=== PATIENT | female | born 1980 | race Caucasian/White ===

== ENCOUNTER 2020-05-14 16:50 | Outpatient (REF) | payer OTHER, SELFPAY | END 2020-05-14 16:51 | disposition home or self-care (01) | LOC: HO.LNP 16:50 | PROVIDERS: Visit Provider Hospitalist | DX: Z20.828 Contact with and (suspected) exposure to other viral communicable diseases (principal) | CPT/HCPCS: 87635 ==

== ENCOUNTER 2021-01-04 12:39 | Outpatient (REF) | payer OTHER, SELFPAY ==
[2021-01-04 14:00] LABS: MANUAL DIFF FLAG NO
[2021-01-04 14:07] LABS: Basophils Percent Auto 0.5 % (0-2); Eosinophils Absolute Auto 0.1 X10*3/uL (0.0-0.4); Eosinophils Percent Auto 1.3 % (0-4); Hematocrit 39.7 % (37-47); Hemoglobin 13.5 g/dl (12.0-16.0); Imm Gran Abs Auto 0.02 X10*3/uL (0.00-0.03); Imm Gran Pct Auto 0.3 % (0.0-0.4); Lymphocytes Absolute Auto 1.9 X10*3/uL (1.2-4.9); Lymphocytes Percent Auto 31.7 % (20-40); Mean Corpuscular Volume 91.3 fL (80-98); Mean Platelet Volume 10.1 fL (9.4-12.3); Monocytes Absolute Auto 0.6 X10*3/uL (0.1-1.2); Monocytes Percent Auto 10.1 % (2-11); Neutrophils Absolute Auto 3.4 X10*3/uL (2.0-8.3); Neutrophils Percent Auto 56.1 % (45-73); Platelet Count 321 X10*3/uL (160-400); Red Blood Count 4.35 X10*6/uL (4.20-5.50); Red Cell Distribution Width 11.1 % (11.0-16.0)
[2021-01-04 14:29] LABS: Alanine Aminotransferase 20 U/L (0-31); Albumin Level 4.7 g/dL (3.5-5.0); Alkaline Phosphatase 32 U/L (39-117); Anion Gap 12 (12-20); Aspartate Amino Transferase 18 U/L (5-31); Bilirubin Total 0.7 mg/dL (0.0-1.0); Blood Urea Nitrogen 13 mg/dL (9-16); Carbon Dioxide 25 mmol/L (22-29); Chloride 106 mmol/L (96-108); Cholesterol 227 mg/dL; Estimated Glomerular Filt Rate > 60; Glucose Fasting 90 mg/dL (60-99); HDL Cholesterol 60 mg/dL; LDL Cholesterol Calculated 149 mg/dl; Potassium 4.3 mmol/L (3.3-5.1); Sodium 139 mmol/L (135-145); Total Protein 7.3 g/dL (6.5-8.0); Triglycerides 92 mg/dL
[2021-01-04 14:52] LABS: TSH reflex Free T4 0.77 uIU/mL (0.32-4.0)
== END 2021-01-04 12:40 | disposition home or self-care (01) ==
LOC: HO.HMGCLDS 12:39
PROVIDERS: PCP Internal Medicine; Visit Provider Internal Medicine
DX: E66.9 Obesity, unspecified (principal); F41.1 Generalized anxiety disorder; G47.9 Sleep disorder, unspecified
CPT/HCPCS: 36415; 80053; 80061; 84443; 85025

== ENCOUNTER 2021-11-05 15:17 | Outpatient (REF) | payer OTHER, SELFPAY ==
[2021-11-05 16:50] LABS: MANUAL DIFF FLAG NO
[2021-11-05 16:54] LABS: Basophils Percent Auto 0.3 % (0-2); Eosinophils Percent Auto 0.4 % (0-4); Hematocrit 37.1 % (37.0-47.0); Hemoglobin 12.6 g/dl (12.0-16.0); Imm Gran Abs Auto 0.02 X10*3/uL (0.00-0.03); Imm Gran Pct Auto 0.2 % (0.0-0.4); Lymphocytes Absolute Auto 2.1 X10*3/uL (1.2-4.9); Lymphocytes Percent Auto 23.5 % (20-40); Mean Corpuscular Hemoglobin 31.1 pg (27.0-33.0); Mean Corpuscular Volume 91.6 fL (80.0-98.0); Mean Platelet Volume 10.9 fL (9.4-12.3); Monocytes Absolute Auto 0.5 X10*3/uL (0.1-1.2); Monocytes Percent Auto 6.1 % (2-11); Neutrophils Absolute Auto 6.2 x10*3/uL (2.0-8.3); Neutrophils Percent Auto 69.5 % (45-73); Platelet Count 300 X10*3/uL (160-400); Red Blood Count 4.05 X10*6/uL (4.20-5.50); Red Cell Distribution Width 11.3 % (11.0-16.0); White Blood Count 8.9 X10*3/uL (4.8-10.8)
[2021-11-05 17:14] LABS: Alanine Aminotransferase 12 U/L (0-31); Albumin Level 4.5 g/dL (3.5-5.0); Alkaline Phosphatase 35 U/L (39-117); Anion Gap 13 (12-20); Aspartate Amino Transferase 17 U/L (5-31); Bilirubin Total 0.4 mg/dL (0.0-1.0); Blood Urea Nitrogen 15 mg/dL (9-16); Calcium 10.1 mg/dL (8.4-10.2); Carbon Dioxide 23 mmol/L (22-29); Chloride 104 mmol/L (96-108); Cholesterol 180 mg/dL; Estimated Glomerular Filt Rate > 60; Glucose Fasting 87 mg/dL (60-99); HDL Cholesterol 46 mg/dL; LDL Cholesterol Calculated 117 mg/dl; Potassium 3.9 mmol/L (3.3-5.1); Sodium 136 mmol/L (135-145); Triglycerides 85 mg/dL
[2021-11-05 17:35] LABS: TSH reflex Free T4 1.68 uIU/mL (0.32-4.0)
== END 2021-11-05 15:18 | disposition home or self-care (01) ==
LOC: HO.HMGCLDS 15:17
PROVIDERS: PCP Internal Medicine; Visit Provider Internal Medicine
DX: Z00.01 Encounter for general adult medical examination with abnormal findings (principal); E66.09 Other obesity due to excess calories; F41.1 Generalized anxiety disorder; G47.9 Sleep disorder, unspecified; Z72.0 Tobacco use
CPT/HCPCS: 36415; 80053; 80061; 84443; 85025

== ENCOUNTER 2022-05-06 14:04 | Outpatient (REF) | payer OTHER, SELFPAY | END 2022-05-06 14:05 | disposition home or self-care (01) | LOC: HO.LNP 14:04 | PROVIDERS: Visit Provider Advanced Practice Midwife | DX: Z13.89 Encounter for screening for other disorder (principal) ==

== ENCOUNTER 2022-05-06 14:24 | Outpatient (REF) | payer OTHER, SELFPAY ==
[2022-05-07 04:49] LABS: HBc Num1 0.14 S/CO (0.00-0.79); HIV AB/AG Nonreactive (Nonreactive); HIV Num 1 0.05 S/CO (0.00-0.99); Hepatitis B Core Antibody Nonreactive (Nonreactive); ~HepC Num1 0.13 S/CO (0.00-0.79); ~Hepatitis C Antibody Nonreactive (Nonreactive)
[2022-05-07 05:27] LABS: Syphilis Screen Nonreactive (Nonreactive)
[2022-05-07 05:37] LABS: CT PCR NOT DETECTED (Not Detect.); NG PCR NOT DETECTED (Not Detect.)
[2022-05-07 09:21] LABS: BV Int Neg Control Negative (Negative); BV Int Pos Control Positive (Positive)
[2022-05-09 21:43] LABS: HPV mRNA E6/E7 rflx Not Detected (Not Detected)
== END 2022-05-06 14:25 | disposition home or self-care (01) ==
LOC: HO.LAB 14:24
PROVIDERS: PCP Internal Medicine; Visit Provider Advanced Practice Midwife
DX: Z12.4 Encounter for screening for malignant neoplasm of cervix (principal); Z11.51 Encounter for screening for human papillomavirus (HPV); Z11.4 Encounter for screening for human immunodeficiency virus [HIV]; Z20.2 Contact with and (suspected) exposure to infections with a predominantly sexual mode of transmission; N89.8 Other specified noninflammatory disorders of vagina
CPT/HCPCS: 86704; 86780; 86803; 87389; 87480; 87491; 87510; 87591; 87624; 87660; 88142

== ENCOUNTER 2022-12-20 10:16 | Outpatient (REF) | payer OTHER, SELFPAY ==
--- NOTE | ~2022-12-20 | MM_ITS ---
EXAMINATION: MM SCREENING DIGITAL BREAST TOMOSYNTHESIS, BILATERAL CLINICAL INFORMATION: Screening. Asymptomatic.. Age 42. No prior mammography. The lifetime risk of breast cancer based on the Tyrer-Cuzick Model is 9%. COMPARISON: Targeted left breast ultrasound 02/15/2010. TECHNIQUE: Digital breast tomosynthesis is performed in both the craniocaudal and mediolateral oblique views along with computer-aided detection (CAD). Synthesized 2D images are generated from the tomosynthesis. FINDINGS: The breasts are heterogeneously dense, which may obscure small masses (ACR BI-RADS breast composition Category c). There are no significant masses, abnormal calcifications, or other abnormalities. No architectural abnormality. The axilla and skin contours are unremarkable. MM/MM tomosynthesis screening BI IMPRESSION: No mammographic evidence of malignancy. ASSESSMENT: BI-RADS 1: Negative RECOMMENDATION: Routine annual mammography screening. This patient's information was entered into a reminder system with a target due date for their next mammogram.
== END 2022-12-20 10:17 | disposition home or self-care (01) ==
LOC: HO.MAMMO 10:16
PROVIDERS: PCP Internal Medicine; Visit Provider Advanced Practice Midwife
DX: Z12.31 Encounter for screening mammogram for malignant neoplasm of breast (principal)
CPT/HCPCS: 77063; 77067

== ENCOUNTER 2023-05-12 14:20 | Outpatient (AMB) | payer OTHER, SELFPAY ==
--- NOTE | 2023-05-12 14:25 | A.OFFVIS_ITS ---
Intake Vital Signs 05/12/23 14:28 Height 5 ft 7 in Weight 196 lb BMI 30.7 BP 110/74 Intake Visit Reasons: Annual Intake Note: ? BV. 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 Doing well with no concerns. She tries to eat healthy, limited exercise with working from home. Has recently stopped her gym membership due to time constraints. Regular monthly menses that last approximately x 5d, HMB 2-3d, often painful, for her whole life. She now has PMS symptoms; cramping, tension, irritable and anxious. Not on her anxiety meds anymore. She stopped the Nexplanon due to bloating, weight gain, and acne. Then tried the pills and felt similar symptoms. She did well with the Mirena. She denies vaginal itching and irritation, treated recently for yeast and BV, feels dry. Not currently sexually active. STI screening offered; she accepts. Denies family history of breast, ovarian or colon cancer. Last pap smear 04/2022, was negative. [facility] Medical History H/O abnormal cervical Papanicolaou smear Obesity Difficulty sleeping Anxiety, generalized Family History Father Unknown family medical history Mother Mood disorder Maternal Grandmother Heart disease Diabetes mellitus Maternal Grandfather Heart disease Lung cancer Sister No problems noted. Son No problems noted. Social History Housing: Apartment Alcohol intake: current Alcohol intake frequency: a few times a month Patient Tobacco Use Status: Former Tobacco user Quit Date: quit 4 years ago e-Cigarette/Vaping Use: Currently Using service: No Current occupational status: employed Sexual orientation: Straight/Heterosexual Gender identity: Female Cognitive needs: No Hearing needs: No Vision needs: No Female Reproductive History Menstrual Date of last menstrual period: 05/05/23 control method: none Total pregnancies: 2 Full term: 1 Number of Living Children: 1 Ab induced: 1 Date of last pap smear: 05/08/22 Date of Mammogram: 12/20/22 Review of Systems Const All systems reviewed & are unremarkable except as noted in HPI and below Reports as per HPI Eyes Reports no additional complaints ENT Reports no additional complaints Card Reports no additional complaints Resp Reports no additional complaints GI Reports as per HPI and Reports no additional complaints Reports as per HPI Musc Reports no additional complaints Skin/Breast Reports as per HPI Neuro Reports no additional complaints Psych Reports no additional complaints Endo Reports no additional complaints Randolph/Lymph Reports no additional complaints Aller/Immun Reports no additional complaints Physical Exam Vital Signs: Last Vital Signs BP 110/74 05/12/23 14:28 BMI result Body Mass Index 30.7 Const General: cooperative, healthy appearing, no acute distress, well developed and alert Orientation/consciousness: patient oriented x3 HEENT Head: Yes normal to inspection Eyes General: appearance normal, both eyes and all related structures Neck Neck: Yes normal visual inspection Thyroid: Thyroid normal Chest Chest palpation & inspection: normal inspection of the chest and other (no puckering, dimpling, peau de orange, retraction, discharge, masses) Breast/axilla inspection: normal inspection of the breasts Breast/axilla palpation: normal palpation of the breasts Resp Effort & Inspection: normal respiratory effort GI Inspection: Yes normal to inspection Palpation (GI): Soft to palpation Rectal Exam - Female: deferred General: Yes bladder normal to palpation External Female Exam: normal external appearance and normal appearance of the urethra Speculum Exam - Vagina: normal appearance of the vagina, normal palpation and normal vaginal discharge Speculum Exam - Cervix: normal appearance of the cervix, normal palpation and Cervical mass present (small appearing polyp) Bimanual exam- vagina & uterus: normal bimanual exam, normal palpation, uterine size normal, bladder normal to palpation, normal palpation and non-tender Bimanual Exam- Adnexa, other: no masses Skin General skin exam: no rashes or lesions noted Rashes: no rashes Neuro General: patient oriented x3 Cognition (Neuro): normal cognition Extrem General: Yes normal to inspection Psych Attitude: cooperative Thought process: Normal thought process present Assessment & Plan Assessment & Plan (1) Well woman exam (no gynecological exam): Code(s): Z00.00 - Encounter for general adult medical examination without abnormal findings Plan: Discussed: Current recommendations for pap smears per ASCCP guidelines. Breast awareness and periodic breast exams. Maintain a healthy lifestyle including a well balanced diet and routine exercise. Use condoms for STI and prevention. Sign up for the patient portal if not already enrolled. Discussed: work up for HMB and polypectomy. All of her questions and concerns were addressed to the best of my ability and shared decision making. She is agreeable to the plan of care. 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 (2) Heavy menstrual bleeding: Code(s): N92.0 - Excessive and frequent menstruation with regular cycle (3) Cervical polyp: Code(s): N84.1 - Polyp of cervix uteri Orders: Orders Bacterial Vaginosis Panel 05/12/23 N92.0 - Excessive and frequent menstruation with regular cycle, Z01.419 - Encounter for gynecological examination (general) (routine) without abnormal findings US pelvic and transvaginal 05/12/23 N84.1 - Polyp of cervix uteri, N92.0 - Excessive and frequent menstruation with regular cycle Thyroid Stimulating Hormone 05/12/23 N92.0 - Excessive and frequent menstruation with regular cycle, N92.1 - Excessive and frequent menstruation with irregular cycle Hepatitis C Antibody 05/12/23 Z20.2 - Contact with and (suspected) exposure to infections with a predominantly sexual mode of transmission Hepatitis B Core Antibody 05/12/23 Z20.2 - Contact with and (suspected) exposure to infections with a predominantly sexual mode of transmission HIV Ab/Ag 05/12/23 Z20.2 - Contact with and (suspected) exposure to infections with a predominantly sexual mode of transmission MM tomosynthesis screening BI 05/12/23 Z12.31 - Encounter for screening mammogram for malignant neoplasm of breast CT NG by PCR 05/12/23 N92.0 - Excessive and frequent menstruation with regular cycle, Z01.419 - Encounter for gynecological examination (general) (routine) without abnormal findings Complete Blood Count no Diff 05/12/23 N92.0 - Excessive and frequent menstruation with regular cycle Syphilis Screen 05/12/23 Z20.2 - Contact with and (suspected) exposure to infections with a predominantly sexual mode of transmission Coding Level of Care Code Est Pt Prev Care 40-64y(69937) Diagnoses Well woman exam (no gynecological exam) Z00.00 Heavy menstrual bleeding N92.0 Cervical polyp N84.1
[2023-05-12 14:28] VITALS: BP 110/74; BMI 30.7
== END 2023-05-12 15:19 | disposition home or self-care (01) ==
PROVIDERS: PCP Internal Medicine; Visit Provider Advanced Practice Midwife
DX: Z01.411 Encounter for gynecological examination (general) (routine) with abnormal findings (principal); N84.1 Polyp of cervix uteri; N92.0 Excessive and frequent menstruation with regular cycle
CPT/HCPCS: 99396

== ENCOUNTER 2023-05-12 14:20 | Outpatient (REF) | payer OTHER, SELFPAY ==
[2023-05-13 11:31] LABS: CT PCR NOT DETECTED (Not Detect.); NG PCR NOT DETECTED (Not Detect.)
[2023-05-13 13:41] LABS: BV Int Neg Control Negative (Negative); BV Int Pos Control Positive (Positive)
== END 2023-05-12 14:21 | disposition home or self-care (01) ==
LOC: HO.LNP 14:20
PROVIDERS: Visit Provider Advanced Practice Midwife
DX: Z01.419 Encounter for gynecological examination (general) (routine) without abnormal findings (principal); N92.0 Excessive and frequent menstruation with regular cycle; N84.1 Polyp of cervix uteri; Z20.2 Contact with and (suspected) exposure to infections with a predominantly sexual mode of transmission
CPT/HCPCS: 0353U; 87480; 87510; 87660

== ENCOUNTER 2023-05-12 15:21 | Outpatient (REF) | payer OTHER, SELFPAY ==
[2023-05-12 15:58] LABS: Hematocrit 38.1 % (37.0-47.0); Mean Corpuscular HGB Conc 34.1 g/dl (31.0-35.0); Mean Corpuscular Volume 90.9 fL (80.0-98.0); Platelet Count 301 X10*3/uL (160-400); Red Blood Count 4.19 X10*6/uL (4.20-5.50); Red Cell Distribution Width 11.5 % (11.0-16.0); White Blood Count 5.8 X10*3/uL (4.8-10.8)
[2023-05-12 16:43] LABS: Thyroid Stimulating Hormone 1.51 uIU/mL (0.32-4.0)
[2023-05-13 08:25] LABS: HBc Num1 0.17 S/CO (0.00-0.79); HIV AB/AG Nonreactive (Nonreactive); HIV Num 1 0.04 S/CO (0.00-0.99); Hepatitis B Core Antibody Nonreactive (Nonreactive); ~HepC Num1 0.04 S/CO (0.00-0.79); ~Hepatitis C Antibody Nonreactive (Nonreactive)
[2023-05-13 08:28] LABS: Syphilis Screen Nonreactive (Nonreactive)
== END 2023-05-12 15:22 | disposition home or self-care (01) ==
LOC: HO.LAB 15:21
PROVIDERS: Visit Provider Advanced Practice Midwife
DX: Z20.2 Contact with and (suspected) exposure to infections with a predominantly sexual mode of transmission (principal); N92.0 Excessive and frequent menstruation with regular cycle; N92.1 Excessive and frequent menstruation with irregular cycle
CPT/HCPCS: 36415; 84443; 85027; 86704; 86780; 86803; 87389

== ENCOUNTER 2023-05-27 12:59 | Outpatient (REF) | payer OTHER, SELFPAY ==
--- NOTE | ~2023-05-27 | US_ITS ---
EXAMINATION: US PELVIS CLINICAL INFORMATION: Menorrhagia. LMP 05/13/2023. COMPARISON: None available. TECHNIQUE: Ultrasound of the pelvis is performed using both transabdominal and transvaginal transducers along with Doppler. Transvaginal imaging is performed due to inadequate visualization transabdominally. FINDINGS: Uterus: The uterus is anteverted. The uterus measures 7.9 x 4.6 x 5.6 cm. Uterine echotexture is heterogeneous. Few myometrial cysts are present. The endometrial stripe measures 1.0 cm in thickness. Adnexa: The right ovary measures 4.2 x 2.5 x 3.2 cm for a volume of 17.9 mL. The left ovary measures 2.4 x 1.5 x 2.1 cm for a volume of 4.0 mL. There is a predominantly solid lesion in the left adnexa between the left ovary and the uterine. Approximate measurements are 1.6 x 1.6 x 1.9 cm. No internal color Doppler flow. Small pelvic ascites. US/US pelvic and transvaginal IMPRESSION: Predominantly solid left adnexal mass measuring 1.6 x 1.6 x 1.9 cm of uncertain significance. This could represent a fibroid. Consider correlation with quantitative beta-hCG levels.
[2023-05-27 16:26] LABS: UPreg QC Valid YES; Urine Pregnancy NEGATIVE (NEGATIVE)
== END 2023-05-27 13:00 | disposition home or self-care (01) ==
LOC: HO.HMGCX 12:59
PROVIDERS: PCP Internal Medicine; Visit Provider Advanced Practice Midwife
DX: N92.0 Excessive and frequent menstruation with regular cycle (principal); N84.1 Polyp of cervix uteri; N91.2 Amenorrhea, unspecified
CPT/HCPCS: 76830; 76856; 81025

== ENCOUNTER 2023-06-16 10:31 | Outpatient (AMB) | payer OTHER, SELFPAY ==
[2023-06-16 10:36] VITALS: BP 126/68; BMI 32.1
--- NOTE | 2023-06-16 10:36 | A.OFFPC_ITS ---
Vital Signs 06/16/23 10:36 Height 5 ft 7 in Weight 205 lb BMI 32.1 BP 126/68 Blood Pressure Location Rt brachial Position Sitting Intake Visit Reasons: phy Allergies Cats/Dogs Allergy (Unknown, Uncoded 05/12/23 14:30) per allergy testing Environmental Allergy (Unknown, Uncoded 05/12/23 14:30) per allergy testing Medication List - Last Reconciled 06/16/23 by Flo Hernandez MD No Known Home Meds Tobacco use date assessed: 06/16/23 Dental Screening Dental Screen Date: 06/16/23 Did you have a dental visit in the last 12 months?: Yes Did you have a dental problem in the last 6 months where you did not have access to dental care?: No Was dental information given to patient?: Patient has dentist HPI phy HPI Details Patient is a 42-year-old female came in today for physical examination She stopped taking clonazepam and zolpidem Patient is taking neik-off-khcgwix sleep remedies which is helping but she still wake up improved times at night Patient admits that she have severe anxiety which is causing problems with socialization. She agreed to take Lexapro, I have sent in mg tablet patient is to take half a tablet for a week and then full tablet. We will be holding onto clonazepam and zolpidem prescription for now This patient does not need to come in every 3 by before refills. She missed her last appointment in March and ran out of medication so she stopped. Mammogram is up-to-date She has [facility]. BMI is elevated at 32.1 patient is trying to lose weight. If she continued with Lexapro she will be returning for follow-up in 6 months Patient will stay in touch with me through patient portal [facility] Medical History Obesity H/O abnormal cervical Papanicolaou smear Difficulty sleeping Anxiety, generalized Family History Father Unknown family medical history Mother Mood disorder Maternal Grandmother Heart disease Diabetes mellitus Maternal Grandfather Heart disease Lung cancer Sister No problems noted. Son No problems noted. Social History Housing: Apartment Alcohol intake: current Alcohol intake frequency: a few times a month Patient Tobacco Use Status: Former Tobacco user Quit Date: quit 4 years ago e-Cigarette/Vaping Use: Currently Using service: No Current occupational status: employed Sexual orientation: Straight/Heterosexual Gender identity: Female Cognitive needs: No Hearing needs: No Vision needs: No Questionnaire PHQ-9 Over the last 2 weeks, how often have you been bothered by any of the following problems? 1. Little interest or pleasure in doing things: more than half the days 2. Feeling down, depressed, or hopeless: several days 3. Trouble falling or staying asleep, or sleeping too much: nearly every day 4. Feeling tired or having little energy: nearly every day 5. Poor appetite or overeating: more than half the days 6. Feeling bad about yourself - or that you are a failure or have let yourself or your family down: more than half the days 7. Trouble concentrating on things, such as reading the newspaper or watching television: more than half the days 8. Moving or speaking so slowly that other people could have noticed. Or the opposite - being so fidgety or restless that you have been moving around a lot more than usual: more than half the days 9. Thoughts that you would be better off or of hurting yourself in some way: not at all Total score: 17 Depression Screening Interpretation: Positive Depression Screening Follow-up: Existing condition, In treatment and New Medication prescribed Depression Screening Done: Yes 33832 - PHQ-9 Billing: Yes Source: Developed by Drs. Oswaldo Bal, Cathy Mendez, Emeterio Navarrete and colleagues, with an educational cas from [employer]. Thrive Questionnaire Date Thrive assessed: 01/04/21 IBRAHIMA-7 AMB Questionnaire IBRAHIMA-7 Date IBRAHIMA - 7 assessed: 06/16/23 Feeling nervous, anxious, or on edge: 2 = More than half the days Not being able to stop or control worryin = More than half the days Worrying too much about different things: 2 = More than half the days Trouble relaxin = More than half the days Being so restless that it is hard to sit still: 2 = More than half the days Becoming easily annoyed or irritable: 2 = More than half the days Feeling afraid as if something awful might happen: 2 = More than half the days Total IBRAHIMA-7 score (0-4 normal; 5-9 mild; 10-14 moderate; 15-21 severe): 14 Source: Developed by Drs. Oswaldo Bal, Cathy Mendez, Emeterio Navarrete and colleagues, with an educational cas from [employer]. IBRAHIMA-7 Assessment Billing IBRAHIMA-7 Assessment Tool: IBRAHIMA-7 Assessment 00399 Review of Systems Const Denies chills, Denies fever(s) and Denies headache(s) Eyes Denies blurry vision ENT Denies headache(s), Denies nasal discharge, Denies nasal obstruction, Denies odynophagia and Denies sinus pain Card Denies chest pain at rest and Denies chest pain with activity Resp Denies cough and Denies hemoptysis GI Denies diarrhea, Denies odynophagia, Denies vomiting and Denies hematemesis Reports as per HPI Musc Denies abnormal gait Skin/Breast Reports as per HPI Neuro Denies Neuro-related abnormal movements, Denies Abnormal speech present, Denies abnormal gait, Denies headache(s) and Denies Sensory deficit (Neuro) Psych Denies mood swings and Denies paranoia Endo Reports as per HPI Randolph/Lymph Reports as per HPI Aller/Immun Reports as per HPI Physical exam (Primary Care) Vital Signs: Last Vital Signs BP 126/68 06/16/23 10:36 BMI result Body Mass Index 32.1 Tobacco/Smoking Status: Tobacco use Status Tobacco use date assessed 06/16/23 06/16/23 10:43 Patient Tobacco Use Status Former Tobacco user 06/16/23 10:43 e-Cigarette/Vaping Use Currently Using 06/16/23 10:43 PHQ-9: PHQ-9 Score PHQ-9: Total score 17 06/16/23 11:07 Depression Screening Interpretation: Positive Depression Screening Follow-up: Existing condition, In treatment and New Medication prescribed Thrive Assessment: Date of Thrive Assessment Date Thrive assessed 01/04/21 06/16/23 10:43 Const General: cooperative, comfortable and no acute distress Orientation/consciousness: patient oriented x3 HENMT Head: Yes normocephalic and Yes atraumatic Eyes General: appearance normal, both eyes and all related structures Pupils: Equal, round and reactive pupils present EOM: EOMs intact bilaterally Neck Neck: Yes supple and No lymphadenopathy Thyroid: Thyroid normal Lymphatic: no lymphadenopathy noted Resp Effort & Inspection: normal respiratory effort and able to speak in complete sentences Auscultation: clear to auscultation bilaterally Cardio Heart sounds: S1 normal heart sound present and S2 normal heart sound present GI Palpation (GI): Soft to palpation and nontender Auscultation: normal bowel sounds General: Yes no CVA tenderness Back/Spine/Pelvis Back: no CVA tenderness Skin General skin exam: elasticity normal and turgor normal Neuro General: patient oriented x3 and gait normal Cranial nerves: Yes Equal, round and reactive pupils present Speech: No Abnormal speech present Sensory Exam: No Sensory deficit (Neuro) Coordination: tandem gait normal and Romberg test negative Extrem General: Yes normal exam except as noted and No edema Assessment and Plan Assessment & Plan (1) Encounter for general adult medical examination with abnormal findings: Code(s): Z00.01 - Encounter for general adult medical examination with abnormal findings (2) Anxiety, generalized: Code(s): F41.1 - Generalized anxiety disorder (3) Tobacco abuse: Code(s): Z72.0 - Tobacco use (4) Obesity: Code(s): E66.9 - Obesity, unspecified Qualifiers: Body mass index: BMI 32.0-32.9 Obesity classification: adult class 1 (BMI 30 - 34.9) Obesity type: due to excess calories Serious obesity comorbidity presence: without serious comorbidity Qualified Code(s): E66.09 - Other obesity due to excess calories; Z68.32 - Body mass index [BMI] 32.0-32.9, adult (5) Difficulty sleeping: Code(s): G47.9 - Sleep disorder, unspecified Plan Patient is a 42-year-old female came in today for physical examination She stopped taking clonazepam and zolpidem Patient is taking [id number]-[id number]-[id number] sleep remedies which is helping but she still wake up improved times at night Patient admits that she have severe anxiety which is causing problems with socialization. She agreed to take Lexapro, I have sent in mg tablet patient is to take half a tablet for a week and then full tablet. We will be holding onto clonazepam and zolpidem prescription for now This patient does not need to come in every 3 by before refills. She missed her last appointment in March and ran out of medication so she stopped. Mammogram is up-to-date She has [facility]. BMI is elevated at 32.1 patient is trying to lose weight. If she continued with Lexapro she will be returning for follow-up in 6 months Patient will stay in touch with me through patient portal Orders: Orders Comprehensive [place]. Panel Fast Today F41.1 - Generalized anxiety disorder, Z00.01 - Encounter for general adult medical examination with abnormal findings Lipid Panel Today F41.1 - Generalized anxiety disorder, Z00.01 - Encounter for general adult medical examination with abnormal findings Medications: New escitalopram oxalate (Lexapro) 10 mg PO DAILY 30 tabs 0RF Coding Level of Care Code Est Pt Prev Care 40-64y(78756) Diagnoses Encounter for general adult medical examination with abnormal findings Z00.01 Anxiety, generalized F41.1 Tobacco abuse Z72.0 Class 1 obesity due to excess calories without serious comorbidity with body mass index (BMI) of 32.0 to 32.9 in adult E66.09; Z68.32 Body mass index: BMI 32.0-32.9 Obesity classification: adult class 1 (BMI 30 - 34.9) Obesity type: due to excess calories Serious obesity comorbidity presence: without serious comorbidity Difficulty sleeping G47.9 Additional Codes IBRAHIMA-7 Assessment Billing - IBRAHIMA-7 Assessment Tool: IBRAHIMA-7 Assessment [id number] ([id number])
== END 2023-06-16 11:06 | disposition home or self-care (01) ==
PROVIDERS: PCP Internal Medicine; Visit Provider Internal Medicine
DX: Z00.00 Encounter for general adult medical examination without abnormal findings (principal); F41.1 Generalized anxiety disorder; E66.09 Other obesity due to excess calories; Z68.32 Body mass index [BMI] 32.0-32.9, adult; Z72.0 Tobacco use; G47.9 Sleep disorder, unspecified
CPT/HCPCS: 96127; 99396

== ENCOUNTER 2023-06-24 13:10 | Outpatient (REF) | payer OTHER, SELFPAY | END 2023-06-24 13:11 | disposition home or self-care (01) | LOC: HO.LAB 13:10 | PROVIDERS: PCP Internal Medicine; Visit Provider Advanced Practice Midwife | DX: N84.1 Polyp of cervix uteri (principal) | CPT/HCPCS: 57500; 81025; 88305 ==

== ENCOUNTER 2023-06-24 13:10 | Outpatient (AMB) | payer OTHER, SELFPAY ==
--- NOTE | 2023-06-24 13:14 | A.OFFVIS_ITS ---
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 She reports two closely spaced menses last month. [facility] Medical History Obesity H/O abnormal cervical Papanicolaou smear Difficulty sleeping Anxiety, generalized Family History Father Unknown family medical history Mother Mood disorder Maternal Grandmother Heart disease Diabetes mellitus Maternal Grandfather Heart disease Lung cancer Sister No problems noted. Son No problems noted. Social History Housing: Apartment Alcohol intake: current Alcohol intake frequency: a few times a month Patient Tobacco Use Status: Former Tobacco user Quit Date: quit 4 years ago e-Cigarette/Vaping Use: Currently Using service: No Current occupational status: employed Sexual orientation: Straight/Heterosexual Gender identity: Female Cognitive needs: No Hearing needs: No Vision needs: No Female Reproductive History Menstrual Date of last menstrual period: 06/03/23 Physical Exam Vital Signs: Last Vital Signs BP 140/80 H 06/24/23 13:15 BMI result Body Mass Index 32.1 Results AMB Test Urine AMB Test Urine Negative Last Edit by PHILIPPE Bowens on 06/24/23 13:27 Results Reviewed Results Reviewed: Laboratory Last Values [facility] Negative 06/24/23 13:26 Assessment & Plan Assessment & Plan (1) Polyp, cervix, mucous: Code(s): N84.1 - Polyp of cervix uteri Plan Polypectomy Post Procedure Care: Nothing in the vagina including: tampons, douching or intimacy until all the bleeding has subsided. There may be some post procedure bleeding for several days, this bleeding is usually light and may turn to a light brown or pink color. Mild cramps may occurs. Nothing in the vaginal including: tampons, douching, or intimacy until all the bleeding has subsided. You may take an over the counter mild analgesic such as Tylenol or Advil (if no allergies) per the manufactures recommendation on dosing, frequency, and follow the directions completely. Call the office if any: fever (over 100.4), flu like symptoms, abdominal pain (worse than cramping), foul smelling, infected appearing vaginal discharge, or heavy bleeding. You will be scheduled for a follow up visit for results, either in person or on the phone when the results are completed in a few weeks. If indicated: Use condoms to prevent and STI's, and only after the bleeding has stopped completely. Orders: Orders Surgical 06/24/23 N84.1 - Polyp of cervix uteri AMB HCG Urine Test 06/24/23 Z32.02 - Encounter for test, result negative Coding Level of Care Code Procedure Only Diagnoses Polyp, cervix, mucous N84.1
[2023-06-24 13:15] VITALS: BP 140/80; BMI 32.1
== END 2023-06-24 13:59 | disposition home or self-care (01) ==
PROVIDERS: PCP Internal Medicine; Visit Provider Advanced Practice Midwife
DX: N84.1 Polyp of cervix uteri (principal)
CPT/HCPCS: 57500

== ENCOUNTER 2023-06-26 08:14 | Outpatient (REF) | payer OTHER, SELFPAY ==
--- NOTE | ~2023-06-26 | MR_ITS ---
EXAMINATION: MR PELVIS WITHOUT AND WITH CONTRAST CLINICAL INFORMATION: Intra-abdominal and pelvic swelling, mass or lump. Question uterine fibroid. COMPARISON: Previous pelvic ultrasound May 27, 2023. TECHNIQUE: Sagittal, axial and coronal sequences through the pelvis with and without IV contrast. Patient received 10 mL IV Gadavist contrast. FINDINGS: The uterus is anteverted and measures 8 x 4.5 x 5.8 cm in sagittal, AP and transverse dimension. There is a 1.7 cm left posterior fundal uterine lesion. This is intermediate signal on T1-weighted sequences, low signal on T2 weighted sequences and demonstrates homogeneous mild enhancement. Appearance is suggestive of a subserosal fibroid. There is a second subserosal low signal T2 nonenhancing lesion along the anterior upper uterine body suggestive of a small fibroid. There are several small cysts in the uterus next to the endometrium measuring 5 mm. No other focal uterine lesion seen. Endometrial thickness is normal measuring 6 mm. The junctional zone does not appear thickened. The cervix is normal. The ovaries are normal. The bladder is empty. There is a small heterogeneous in signal slightly irregularly-shaped lesion seen in the anterior pelvis superior to the bladder. This measures 2.3 x 3.3 x 3.6 cm in dimension. This is heterogeneous in signal with laminated high and low signal layers on T1 and T2-weighted sequences. This does not demonstrate increased T1 signal to suggest of acute hemorrhage or endometrioma. This does not demonstrate enhancement. This may present an organized old hematoma or fibrosis. No ascites. No adenopathy. No hernia. Vascular structures are normal. There may be loss of bright T2 signal suggestive of degenerative disc disease in the lower lumbar spine. Bony structures are otherwise unremarkable. MR/MR pelvis wo/w con IMPRESSION: Small uterine fibroids. No adnexal mass. 2.3 x 3.3 x 3.6 cm irregularly-shaped lesion in the anterior pelvis superior to the bladder. Differential would include old organized hematoma or fibrosis.
[2023-06-26] MEDS: gadobutroL 10 ML VIAL IVPUSH (09:24)
== END 2023-06-26 08:15 | disposition home or self-care (01) ==
LOC: HO.MRI 08:14
PROVIDERS: PCP Internal Medicine; Visit Provider Advanced Practice Midwife
DX: R19.00 Intra-abdominal and pelvic swelling, mass and lump, unspecified site (principal)
CPT/HCPCS: 72197; A9585

== ENCOUNTER 2023-07-17 09:37 | Outpatient (REF) | payer OTHER, SELFPAY ==
[2023-07-17 11:48] LABS: HCG Quantitative < 2 mIU/mL
[2023-07-17 12:15] LABS: Alanine Aminotransferase 18 U/L (0-31); Albumin Level 4.5 g/dL (3.5-5.0); Alkaline Phosphatase 33 U/L (39-117); Anion Gap 12 (12-20); Aspartate Amino Transferase 20 U/L (5-31); Bilirubin Total 0.5 mg/dL (0.0-1.0); Blood Urea Nitrogen 12 mg/dL (9-16); Calcium 9.8 mg/dL (8.4-10.2); Carbon Dioxide 25 mmol/L (22-29); Chloride 106 mmol/L (96-108); Cholesterol 216 mg/dL (<200); Estimated Glomerular Filt Rate > 60; Glucose Fasting 93 mg/dL (60-99); HDL Cholesterol 61 mg/dL (>40); LDL Cholesterol Calculated 135 mg/dL (<100); Potassium 3.9 mmol/L (3.3-5.1); Sodium 139 mmol/L (135-145); Total Protein 7.3 g/dL (6.5-8.0); Triglycerides 100 mg/dL (<150)
== END 2023-07-17 09:38 | disposition home or self-care (01) ==
LOC: HO.LAB 09:37
PROVIDERS: Advanced Practice Midwife; PCP Internal Medicine; Visit Provider Internal Medicine
DX: Z32.02 Encounter for pregnancy test, result negative (principal); F41.1 Generalized anxiety disorder; R93.89 Abnormal findings on diagnostic imaging of other specified body structures; N92.1 Excessive and frequent menstruation with irregular cycle; R19.00 Intra-abdominal and pelvic swelling, mass and lump, unspecified site
CPT/HCPCS: 36415; 58100; 80053; 80061; 81025; 84702

== ENCOUNTER 2023-07-17 09:37 | Outpatient (AMB) | payer OTHER, SELFPAY ==
--- NOTE | 2023-07-17 09:45 | MHC.OFFVIS ---
Intake Vital Signs 07/17/23 09:48 Height 5 ft 7 in Weight 202 lb 13.204 oz BMI 31.8 BP 122/78 Intake Visit Reasons: MRI follow up Rehab Nursing Tech Required: No Information Interpreted: non-clinical & clinical Accompanied by: Self / Same As Patient Allergies Cats/Dogs Allergy (Unknown, Uncoded 07/17/23 09:49) per allergy testing Environmental Allergy (Unknown, Uncoded 07/17/23 09:49) per allergy testing HPI HPI Comments History of Present Illness Details Is here for follow-up MRI, history heavy menstrual bleeding, prior pelvic lesion on US. She had a recent polypectomy and reports her period was shorter in duration (2.5d) but still heavy. Reports heavy menses her whole life, always on BC until the last 6 months, now passing large blood clots. Closely spaced cycles 2-3 weeks apart. [facility] Medical History Obesity H/O abnormal cervical Papanicolaou smear Difficulty sleeping Anxiety, generalized Family History Father Unknown family medical history Mother Mood disorder Maternal Grandmother Heart disease Diabetes mellitus Maternal Grandfather Heart disease Lung cancer Sister No problems noted. Son No problems noted. Social History Housing: Apartment Alcohol intake: current Alcohol intake frequency: a few times a month Patient Tobacco Use Status: Former Tobacco user Quit Date: quit 4 years ago e-Cigarette/Vaping Use: Currently Using service: No Current occupational status: employed Sexual orientation: Straight/Heterosexual Gender identity: Female Cognitive needs: No Hearing needs: No Vision needs: No Review of Systems Const All systems reviewed & are unremarkable except as noted in HPI and below Physical Exam Vital Signs: Last Vital Signs BP 122/78 07/17/23 09:48 BMI result Body Mass Index 31.8 Const General: cooperative, healthy appearing and no acute distress Orientation/consciousness: patient oriented x3 GI Inspection: Yes normal to inspection Palpation (GI): Soft to palpation and Other GI palpation findings present (Nontender) Rectal Exam - Female: visual inspection normal General: Yes bladder normal to palpation External Female Exam: normal appearance of the urethra Speculum Exam - Vagina: normal appearance of the vagina, normal palpation and normal vaginal discharge Speculum Exam - Cervix: normal appearance of the cervix and normal palpation Bimanual exam- vagina & uterus: normal bimanual exam, normal palpation, uterine size normal, bladder normal to palpation, normal palpation, uterine shape normal and non-tender Bimanual Exam- Adnexa, other: normal adnexae Neuro General: patient oriented x3 Office Procedures Endometrial Biopsy Details: The patient is here today for an endometrial biopsy due to AUB to rule out any pathology including atypical, hyperplasia or cancer cells of the uterus. She was counseled regarding anticipatory guidance for the procedure including the risks for pain, infection, bleeding, perforation, potential injury to the tissues may include the cervix, uterus, tubes, bladder and bowels. These injuries may include further treatment and evaluation including surgery, blood transfusions, antibiotics, hospitalizations and anesthesia. Permanent injury and scarring can occur. She was consented for the procedure, and the consent forms were signed. She is agreeable to have the procedure today. All questions were answered. Endometrial Biopsy Procedure: The patient was placed in the dorsal lithotomy position and a sterile speculum inserted. Using aseptic technique for the procedure. The cervix was cleansed with Betadine x 3 swabs. A single toothed tenaculum was placed on the cervix for stabilization and the uterus was sounded to 7 cm with a 4mm pipelle for 3 passes. Minimal bleeding was observed. The tissue sample was placed in formalin in a patient labeled container by staff assisting and sent to the pathology department for processing and interpretation. The patient tolerate the procedure well and was in good condition when leaving the department. Endometrial Biopsy Post Procedure Care: Nothing in the vagina including: tampons, douching or intimacy until all the bleeding has subsided. There may be some post procedure bleeding for several days, this bleeding is usually light and may turn to a light brown or pink color. Mild cramps may occurs. Nothing in the vaginal including: tampons, douching, or intimacy until all the bleeding has subsided. You may take an over the counter mild analgesic such as Tylenol or Advil (if no allergies) per the manufactures recommendation on dosing, frequency, and follow the directions completely. Call the office if any: fever (over 100.4), flu like symptoms, abdominal pain (worse than cramping), foul smelling, infected appearing vaginal discharge, or heavy bleeding. If indicated: Use condoms to prevent and STI's, and only after the bleeding has stopped completely. Return to the office in 2 weeks for results and plan of care. This note is constructed using voice recognition software. While every effort has been made to ensure accuracy, varnishing unit operator errors may have been included. [id number] Biopsy Results AMB Test Urine AMB Test Urine Negative Last Edit by Laura James CMA on 07/17/23 10:33 Results Reviewed Results Reviewed: Laboratory Last Values Tst Clinic Negative 07/17/23 10:[address] [address] Magnetic Resonance Report Signed Patient: Radha Peralta MR#: [id number] : 1980 Acct:[id number] Age/Sex: 42 / F ADM Date: 06/26/23 Loc: HO.MRI Attending Dr: April Chacon CNM Ordering Physician: April Chacon CNM Date of Service: 06/26/23 Procedure(s): MR pelvis wo/w con Accession Number(s): [id number] cc: Flo Hernandez MD; April Chacon CNM~ EXAMINATION: MR PELVIS WITHOUT AND WITH CONTRAST CLINICAL INFORMATION: Intra-abdominal and pelvic swelling, mass or lump. Question uterine fibroid. COMPARISON: Previous pelvic ultrasound May 27, 2023. TECHNIQUE: Sagittal, axial and coronal sequences through the pelvis with and without IV contrast. Patient received 10 mL IV Gadavist contrast. FINDINGS: The uterus is anteverted and measures 8 x 4.5 x 5.8 cm in sagittal, AP and transverse dimension. There is a 1.7 cm left posterior fundal uterine lesion. This is intermediate signal on T1-weighted sequences, low signal on T2 weighted sequences and demonstrates homogeneous mild enhancement. Appearance is suggestive of a subserosal fibroid. There is a second subserosal low signal T2 nonenhancing lesion along the anterior upper uterine body suggestive of a small fibroid. There are several small cysts in the uterus next to the endometrium measuring 5 mm. No other focal uterine lesion seen. Endometrial thickness is normal measuring 6 mm. The junctional zone does not appear thickened. The cervix is normal. The ovaries are normal. The bladder is empty. There is a small heterogeneous in signal slightly irregularly-shaped lesion seen in the anterior pelvis superior to the bladder. This measures 2.3 x 3.3 x 3.6 cm in dimension. This is heterogeneous in signal with laminated high and low signal layers on T1 and T2-weighted sequences. This does not demonstrate increased T1 signal to suggest of acute hemorrhage or endometrioma. This does not demonstrate enhancement. This may present an organized old hematoma or fibrosis. No ascites. No adenopathy. No hernia. Vascular structures are normal. There may be loss of bright T2 signal suggestive of degenerative disc disease in the lower lumbar spine. Bony structures are otherwise unremarkable. MR/MR pelvis wo/w con IMPRESSION: Small uterine fibroids. No adnexal mass. 2.3 x 3.3 x 3.6 cm irregularly-shaped lesion in the anterior pelvis superior to the bladder. Differential would include old organized hematoma or fibrosis. Dictated By: Cindy Gay MD Signed By: <Electronically signed by Cindy Gay MD in OV> 06/26/23 1031 DD/ 0907 TD/TT: Accounting Support Specialist: RENETTA Assessment & Plan Assessment & Plan (1) Heavy menstrual bleeding: Code(s): N92.0 - Excessive and frequent menstruation with regular cycle Qualifiers: Menorrhagia type: with irregular cycle Qualified Code(s): N92.1 - Excessive and frequent menstruation with irregular cycle (2) Pelvic mass: Code(s): R19.00 - Intra-abdominal and pelvic swelling, mass and lump, unspecified site Plan Discussed: ultrasound findings, irregular shaped lesion in anterior superior to the bladder measuring up to 3.6 cm. Differential is considered hematoma or fibrosis. A subserosal fibroid, and 2nd subserosal lesion anterior upper uterine body suggested of a small fiber. Prior left adnexal mass not seen. Consider referral for surgical consultation-Await EMB results and discuss plan of care in 1-2 weeks. All of her questions and concerns were addressed to the best of my ability and shared decision making. She is agreeable to the plan of care. See procedure note for additional information. This note is constructed using voice recognition software. While every effort has been made to ensure accuracy, varnishing unit operator errors may have been included. Orders: Orders AMB HCG Urine Test Today Z32.02 - Encounter for test, result negative Surgical Today N93.9 - Abnormal uterine and vaginal bleeding, unspecified Coding Level of Care Code Procedure Only Diagnoses Menorrhagia with irregular cycle N92.1 Menorrhagia type: with irregular cycle Pelvic mass R19.00 CPT Codes Endometrial Biopsy - CPT: 78815-Otkozuqjzqu Biopsy ([id number])
[2023-07-17 09:48] VITALS: BP 122/78; BMI 31.8
== END 2023-07-17 10:52 | disposition home or self-care (01) ==
LOC: HO.HWS 09:37
PROVIDERS: PCP Internal Medicine; Visit Provider Advanced Practice Midwife
DX: Z30.430 Encounter for insertion of intrauterine contraceptive device (principal); Z32.02 Encounter for pregnancy test, result negative
CPT/HCPCS: 58100

== ENCOUNTER 2023-07-17 10:58 | Outpatient (REF) | payer OTHER, SELFPAY | END 2023-07-17 10:59 | disposition home or self-care (01) | LOC: HO.LNP 10:58 | PROVIDERS: Visit Provider Advanced Practice Midwife | DX: N93.9 Abnormal uterine and vaginal bleeding, unspecified (principal) | CPT/HCPCS: 88305 ==

== ENCOUNTER 2023-07-31 10:31 | Outpatient (AMB) | payer OTHER, SELFPAY ==
--- NOTE | 2023-07-31 10:32 | A.OFFVIS_ITS ---
Intake Vital Signs 07/31/23 10:35 Height 5 ft 7 in Weight 202 lb 13.204 oz BMI 31.8 BP 110/70 Intake Visit Reasons: EMB results Allergies Cats/Dogs Allergy (Unknown, Uncoded 07/17/23 09:49) per allergy testing Environmental Allergy (Unknown, Uncoded 07/17/23 09:49) per allergy testing HPI HPI Comments History of Present Illness Details Patient is here today for results from her EMB due to have a menstrual bleeding. Also concerns for her recent MRI and follow-up plan of care. She is interested in starting control in the future. She reports a history of prior pelvic pain more intense on her left side since episode has resolved. [facility] Medical History Obesity H/O abnormal cervical Papanicolaou smear Difficulty sleeping Anxiety, generalized Family History Father Unknown family medical history Mother Mood disorder Maternal Grandmother Heart disease Diabetes mellitus Maternal Grandfather Heart disease Lung cancer Sister No problems noted. Son No problems noted. Social History Housing: Apartment Alcohol intake: current Alcohol intake frequency: a few times a month Patient Tobacco Use Status: Former Tobacco user Quit Date: quit 4 years ago e-Cigarette/Vaping Use: Currently Using service: No Current occupational status: employed Sexual orientation: Straight/Heterosexual Gender identity: Female Cognitive needs: No Hearing needs: No Vision needs: No Physical Exam Vital Signs: Last Vital Signs BP 110/70 07/31/23 10:35 BMI result Body Mass Index 31.8 Results Reviewed Results Reviewed: of 1 [email or web address]#page=1&zoom=auto,- 15,809 Surgical Pathology [id number] Name: Radha Peralta Age/Sex: 42/F Attending: April Chacon CNM : 1980 Submitted by: April Chacon CNM Copies to: MR #: [id number] Status: DEP REF Collected: 07/17/23 Location: [facility] Received: 07/17/23 Diagnosis Endometrium, biopsy: Benign proliferative endometrium and benign endocervical glandular epithelium; no atypia or carcinoma. Clinical History AUB Microscopic Description Microscopic sections reviewed. Material Received EMB Gross Description Received in formalin labeled ?EMB? are multiple fragments of friable red-pink and pink rico soft tissue mixed with mucus and clotted blood forming an aggregate measuring 3.0 x 2.2 x 0.3 cm in greatest dimension. The specimen is wrapped in lens paper and entirely submitted for microscopic examination, multiple pieces in cassette labeled A1 and A2. smc NOTE: Unless otherwise stated, all tissue is formalin-fixed and paraffin- embedded. Some or all of the immunohistochemical tests reported herein may have been developed and their performance characteristics determined by [facility]. They have not been cleared or approved by the U.S. Food and Drug Administration (FDA). However, the FDA has determined that such clearance or approval is not necessary. This laboratory is certified under the Clinical Laboratory Improvement Amendments of 1988 (CLIA) as qualified to perform high complexity clinical laboratory testing. Electronically Signed By: Madison Wright 07/21/23 1123 Patient: Radha Peralta Age/Sex: 42/F MR#: [id number] Page 1 of 1 Assessment & Plan Assessment & Plan (1) Pelvic mass: Code(s): R19.00 - Intra-abdominal and pelvic swelling, mass and lump, unspecified site (2) Heavy menstrual bleeding: Code(s): N92.0 - Excessive and frequent menstruation with regular cycle Qualifiers: Menorrhagia type: with regular cycle Qualified Code(s): N92.0 - Excessive and frequent menstruation with regular cycle Plan Discussed: Per consultation with MD recommended referral to radiology for interventional procedure and possible biopsy of lesion, or consider following with an MRI in 3 months here. I left a message with [facility] to speak to the interventional radiologist regarding a plan of care for IR referral. Patient to follow up in one week to decide what she would like to do for her care, and control. Coding Level of Care Code Est Pt Level 2 (53216) Diagnoses Pelvic mass R19.00 Menorrhagia with regular cycle N92.0 Menorrhagia type: with regular cycle
[2023-07-31 10:35] VITALS: BP 110/70; BMI 31.8
== END 2023-07-31 11:05 | disposition home or self-care (01) ==
PROVIDERS: PCP Internal Medicine; Visit Provider Advanced Practice Midwife
DX: R19.00 Intra-abdominal and pelvic swelling, mass and lump, unspecified site (principal); N92.0 Excessive and frequent menstruation with regular cycle
CPT/HCPCS: 99212

== ENCOUNTER → 2023-07-31 10:31 | Outpatient (BNVA) | payer OTHER, SELFPAY | PROVIDERS: PCP Internal Medicine; Visit Provider Advanced Practice Midwife ==

== ENCOUNTER → 2023-08-05 12:47 | Outpatient (BNVA) | payer OTHER, SELFPAY | PROVIDERS: PCP Internal Medicine; Visit Provider Advanced Practice Midwife ==

== ENCOUNTER 2023-10-09 15:48 | Outpatient (AMB) | payer OTHER, SELFPAY ==
[2023-10-09 15:49] VITALS: BP 126/70; PULSE 80; O2SAT 98; BMI 31.7
--- NOTE | 2023-10-09 15:49 | MHC.PC.OV ---
Vital Signs 10/09/23 15:49 Height 5 ft 7 in Weight 202 lb 6 oz BMI 31.7 BP 126/70 Blood Pressure Location Rt brachial Position Sitting Pulse 80 Pulse Source Pulse Oximeter Pulse Oximetry (%) 98 Oxygen Delivery Method Room Air Intake Visit Reasons: 3 Month F/U on Labs Allergies Cats/Dogs Allergy (Unknown, Uncoded 07/17/23 09:49) per allergy testing Environmental Allergy (Unknown, Uncoded 07/17/23 09:49) per allergy testing Medication List - Last Reconciled 10/09/23 by Flo Hernandez MD clonazepam 1 mg PO BID 30 days zolpidem 5 mg PO BEDTIME PRN 30 days Tobacco use date assessed: 10/09/23 Dental Screening Dental Screen Date: 10/09/23 Did you have a dental visit in the last 12 months?: Yes Did you have a dental problem in the last 6 months where you did not have access to dental care?: No Was dental information given to patient?: Patient has dentist HPI 3 Month F/U on Labs HPI Details Patient is a 42-year-old female came in today for regular follow-up Patient has restarted taking clonazepam zolpidem to sleep at night She tried taking Lexapro but did not like the way she felt on it. Patient says that she felt numb She came in today medication refill. Patient is complying with the treatment plan no signs of abuse [facility] Medical History Obesity H/O abnormal cervical Papanicolaou smear Difficulty sleeping Anxiety, generalized Family History Father Unknown family medical history Mother Mood disorder Maternal Grandmother Heart disease Diabetes mellitus Maternal Grandfather Heart disease Lung cancer Sister No problems noted. Son No problems noted. Social History Housing: Apartment Alcohol intake: current Alcohol intake frequency: a few times a month Patient Tobacco Use Status: Former Tobacco user Quit Date: quit 4 years ago e-Cigarette/Vaping Use: Former Use service: No Current occupational status: employed Sexual orientation: Straight/Heterosexual Gender identity: Female Cognitive needs: No Hearing needs: No Vision needs: No Questionnaire Thrive Questionnaire Date Thrive assessed: 01/04/21 AUDIT C Alcohol Use Questionnaire (AUDIT-C) 1. How often do you have a drink containing alcohol?: Never 3. How often do you have six or more drinks on one occasion?: Never Total Score: 0 Score Reviewed/Action Taken: Yes IBRAHIMA-7 AMB Questionnaire IBRAHIMA-7 Date IBRAHIMA - 7 assessed: 06/16/23 Source: Developed by Drs. Oswaldo Bal, Cathy Mendez, Emeterio Navarrete and colleagues, with an educational cas from [employer] ([employer]). Review of Systems Const Denies chills and Denies fever(s) ENT Denies epistaxis and Denies nasal discharge Card Denies chest pain Resp Denies chest congestion, Denies cough and Denies hemoptysis GI Denies diarrhea and Denies nausea Skin/Breast Denies rash Neuro Reports no additional complaints Psych Reports no additional complaints Endo Reports no additional complaints Physical exam (Primary Care) Tobacco/Smoking Status: Tobacco use Status Tobacco use date assessed 06/16/23 06/16/23 10:43 Patient Tobacco Use Status Former Tobacco user 08/05/23 13:40 e-Cigarette/Vaping Use Former Use 08/05/23 13:40 Number of minutes spent counselin Thrive Assessment: Date of Thrive Assessment Date Thrive assessed 01/04/21 06/16/23 10:43 Const General: cooperative, comfortable and no acute distress Orientation/consciousness: patient oriented x3 HENMT Head: Yes normocephalic Eyes General: appearance normal, both eyes and all related structures Neck Neck: Yes supple Resp Effort & Inspection: normal respiratory effort, no cough and no stridor Cardio Rhythm: regular rhythm Heart sounds: S1 normal heart sound present and S2 normal heart sound present Skin General skin exam: turgor normal Neuro General: patient oriented x3, tone normal and moves all extremities Extrem Right lower extremity: no edema Left lower extremity: no edema Assessment and Plan Assessment & Plan (1) Anxiety, generalized: Code(s): F41.1 - Generalized anxiety disorder (2) Obesity: Code(s): E66.9 - Obesity, unspecified Qualifiers: Obesity type: due to excess calories Obesity classification: adult class 1 (BMI 30 - 34.9) Serious obesity comorbidity presence: without serious comorbidity Body mass index: BMI 32.0-32.9 Qualified Code(s): E66.09 - Other obesity due to excess calories; Z68.32 - Body mass index [BMI] 32.0-32.9, adult (3) Difficulty sleeping: Code(s): G47.9 - Sleep disorder, unspecified (4) Ex-smoker: Code(s): Z87.891 - Personal history of nicotine dependence Plan Patient is a 42-year-old female came in today for regular follow-up Patient has restarted taking clonazepam zolpidem to sleep at night She tried taking Lexapro but did not like the way she felt on it. Patient says that she felt numb She came in today medication refill. Patient is complying with the treatment plan no signs of abuse Patient stopped using all nicotine products BMI is elevated at 31.7 need to lose weight Tells me that she had uterine biopsy which was benign Medications: Refilled zolpidem 5 mg PO BEDTIME PRN 30 tabs 2RF sleep 30 days G47.9 - Sleep disorder, unspecified clonazepam 1 mg PO BID 45 tabs 2RF 30 days F41.1 - Generalized anxiety disorder Coding Level of Care Code Est Pt Level 3 (80118) Diagnoses Anxiety, generalized F41.1 Class 1 obesity due to excess calories without serious comorbidity with body mass index (BMI) of 32.0 to 32.9 in adult E66.09; Z68.32 Obesity type: due to excess calories Obesity classification: adult class 1 (BMI 30 - 34.9) Serious obesity comorbidity presence: without serious comorbidity Body mass index: BMI 32.0-32.9 Difficulty sleeping G47.9 Ex-smoker Z87.891
== END 2023-10-09 16:40 | disposition home or self-care (01) ==
PROVIDERS: PCP Internal Medicine; Visit Provider Internal Medicine
DX: F41.1 Generalized anxiety disorder (principal); E66.09 Other obesity due to excess calories; Z68.32 Body mass index [BMI] 32.0-32.9, adult; G47.9 Sleep disorder, unspecified; Z87.891 Personal history of nicotine dependence
CPT/HCPCS: 99213

== ENCOUNTER 2023-11-25 11:40 | Outpatient (AMB) | payer OTHER, SELFPAY ==
[2023-11-25 11:47] VITALS: BP 110/78; PULSE 82; O2SAT 96; BMI 30.8
--- NOTE | 2023-11-25 11:47 | MHC.PC.OV ---
Vital Signs 11/25/23 11:47 Height 5 ft 7 in Weight 196 lb 6 oz BMI 30.8 BP 110/78 Blood Pressure Location Rt brachial Position Sitting Pulse 82 Pulse Source Pulse Oximeter Pulse Oximetry (%) 96 Oxygen Delivery Method Room Air Intake Visit Reasons: 6 Month F/U Allergies Cats/Dogs Allergy (Unknown, Uncoded 07/17/23 09:49) per allergy testing Environmental Allergy (Unknown, Uncoded 07/17/23 09:49) per allergy testing Medication List - Last Reconciled 11/25/23 by Flo Hernandez MD clonazepam 1 mg PO BID 30 days zolpidem 5 mg PO BEDTIME PRN 30 days Tobacco use date assessed: 11/25/23 Dental Screening Dental Screen Date: 11/25/23 Did you have a dental visit in the last 12 months?: Yes Did you have a dental problem in the last 6 months where you did not have access to dental care?: No Was dental information given to patient?: Patient has dentist HPI 6 Month F/U HPI Details Patient is a 42-year-old female came in today for regular follow-up Patient has allergies and she is not taking anything to control them Now have sinus pressure postnasal drip and nasal discharge Patient says that she has a bad taste in her mouth and she knows she is developing infection and is requesting antibiotic We talked about controlling allergies it is very important, patient does have medications at home but she has not taking Patient says that she ran out of Candy she will buy more. Patient has restarted taking clonazepam zolpidem to sleep at night She came in today medication refill. Patient is complying with the treatment plan no signs of abuse BMI is elevated patient is trying to lose weight [facility] Medical History Obesity H/O abnormal cervical Papanicolaou smear Difficulty sleeping Anxiety, generalized Family History Father Unknown family medical history Mother Mood disorder Maternal Grandmother Heart disease Diabetes mellitus Maternal Grandfather Heart disease Lung cancer Sister No problems noted. Son No problems noted. Social History Housing: Apartment Alcohol intake: current Alcohol intake frequency: a few times a month Patient Tobacco Use Status: Former Tobacco user Quit Date: quit 4 years ago e-Cigarette/Vaping Use: Former Use service: No Current occupational status: employed Sexual orientation: Straight/Heterosexual Gender identity: Female Cognitive needs: No Hearing needs: No Vision needs: No Questionnaire PHQ-9 Over the last 2 weeks, how often have you been bothered by any of the following problems? 1. Little interest or pleasure in doing things: several days 2. Feeling down, depressed, or hopeless: several days 3. Trouble falling or staying asleep, or sleeping too much: several days 4. Feeling tired or having little energy: not at all 5. Poor appetite or overeating: several days 6. Feeling bad about yourself - or that you are a failure or have let yourself or your family down: several days 7. Trouble concentrating on things, such as reading the newspaper or watching television: several days 8. Moving or speaking so slowly that other people could have noticed. Or the opposite - being so fidgety or restless that you have been moving around a lot more than usual: several days 9. Thoughts that you would be better off or of hurting yourself in some way: not at all Total score: 7 Depression Screening Interpretation: Negative Depression Screening Done: Yes 21449 - PHQ-9 Billing: Yes Source: Developed by Drs. Oswaldo Bal, Cathy Mendez, Emeterio Navarrete and colleagues, with an educational cas from [employer]. Thrive Questionnaire Date Thrive assessed: 11/25/23 I am a: Patient What is your living situation today?: I have a steady place to live Within the past 12 months, did the food you bought not last and you didn't have the money to get more?: Never true Within the past 12 months, did you worry whether your food would run out before you got money to buy more?: Never true Do you have trouble paying for medicines?: No Do you have trouble getting transportation to medical appointments?: No Do you have trouble paying your heating and electricity bill?: No Do you have trouble taking care of your child, family member or friend?: No Do you have trouble with day-to-day activities such as bathing, preparing meals, shopping, managing finances, etc.?: No Are you currently unemployed and looking for a job?: No Are you interested in more education?: No Please select the resources that you would like help with: None Currently or been in a relationship where the following occur: no concerns reported THRIVE Score: 0 AUDIT C Alcohol Use Questionnaire (AUDIT-C) 1. How often do you have a drink containing alcohol?: Never 3. How often do you have six or more drinks on one occasion?: Never Total Score: 0 Score Reviewed/Action Taken: Yes IBRAHIMA-7 AMB Questionnaire IBRAHIMA-7 Date IBRAHIMA - 7 assessed: 11/25/23 Feeling nervous, anxious, or on edge: 3 = Nearly every day Not being able to stop or control worryin = Nearly every day Worrying too much about different things: 3 = Nearly every day Trouble relaxin = More than half the days Being so restless that it is hard to sit still: 2 = More than half the days Becoming easily annoyed or irritable: 2 = More than half the days Feeling afraid as if something awful might happen: 1 = Several days Total IBRAHIMA-7 score (0-4 normal; 5-9 mild; 10-14 moderate; 15-21 severe): 16 Source: Developed by Drs. Oswaldo Bal, Cathy Mendez, Emeterio Navarrete and colleagues, with an educational cas from [employer]. IBRAHIMA-7 Assessment Billing IBRAHIMA-7 Assessment Tool: IBRAHIMA-7 Assessment 54940 Review of Systems Const Denies chills and Denies fever(s) ENT Denies epistaxis Card Denies chest pain Resp Denies chest congestion, Denies cough and Denies hemoptysis GI Denies diarrhea and Denies nausea Skin/Breast Denies rash Neuro Reports no additional complaints Psych Reports no additional complaints Endo Reports no additional complaints Physical exam (Primary Care) Vital Signs: Last Vital Signs Pulse 82 11/25/23 11:47 BP 110/78 11/25/23 11:47 Pulse Ox 96 11/25/23 11:47 Oxygen Delivery Method Room Air 11/25/23 11:47 BMI result Body Mass Index 30.8 Tobacco/Smoking Status: Tobacco use Status Tobacco use date assessed 11/25/23 11/25/23 11:51 Patient Tobacco Use Status Former Tobacco user 11/25/23 11:49 e-Cigarette/Vaping Use Former Use 11/25/23 11:49 PHQ-9: PHQ-9 Score PHQ-9: Total score 7 11/25/23 11:54 Depression Screening Interpretation: Negative Thrive Assessment: Date of Thrive Assessment Date Thrive assessed 11/25/23 11/25/23 11:54 Currently or been in a relationship where the following occur: no concerns reported Const General: cooperative, comfortable and no acute distress Orientation/consciousness: patient oriented x3 HENMT Other: Ears without signs of infection, throat slight erythema uvula midline, slight discomfort over maxillary sinus with pressure Head: Yes normocephalic Eyes General: appearance normal, both eyes and all related structures Neck Neck: Yes supple Resp Effort & Inspection: normal respiratory effort, no cough and no stridor Cardio Rhythm: regular rhythm Heart sounds: S1 normal heart sound present and S2 normal heart sound present Skin General skin exam: turgor normal Neuro General: patient oriented x3, tone normal and moves all extremities Extrem Right lower extremity: no edema Left lower extremity: no edema Assessment and Plan Assessment & Plan (1) Difficulty sleeping: Code(s): G47.9 - Sleep disorder, unspecified (2) Anxiety, generalized: Code(s): F41.1 - Generalized anxiety disorder (3) Obesity: Code(s): E66.9 - Obesity, unspecified Qualifiers: Obesity type: due to excess calories Obesity classification: adult class 1 (BMI 30 - 34.9) Serious obesity comorbidity presence: without serious comorbidity Body mass index: BMI 32.0-32.9 Qualified Code(s): E66.09 - Other obesity due to excess calories; Z68.32 - Body mass index [BMI] 32.0-32.9, adult (4) URI (upper respiratory infection): Code(s): J06.9 - Acute upper respiratory infection, unspecified Qualifiers: URI type: unspecified URI Qualified Code(s): J06.9 - Acute upper respiratory infection, unspecified Plan Patient is a 42-year-old female came in today for regular follow-up Patient has allergies and she is not taking anything to control them Now have sinus pressure postnasal drip and nasal discharge Patient says that she has a bad taste in her mouth and she knows she is developing infection and is requesting antibiotic We talked about controlling allergies it is very important, patient does have medications at home but she has not taking Patient says that she ran out of [employer] she will buy more. Patient has restarted taking clonazepam zolpidem to sleep at night She came in today medication refill. Patient is complying with the treatment plan no signs of abuse BMI is elevated patient is trying to lose weight Medications: Refilled clonazepam 1 mg PO BID 30 days 45 tabs 2RF F41.1 - Generalized anxiety disorder zolpidem 5 mg PO BEDTIME 30 days PRN 30 tabs 2RF sleep G47.9 - Sleep disorder, unspecified Coding Level of Care Code Est Pt Level 3 (31842) Diagnoses Difficulty sleeping G47.9 Anxiety, generalized F41.1 Class 1 obesity due to excess calories without serious comorbidity with body mass index (BMI) of 32.0 to 32.9 in adult E66.09; Z68.32 Obesity type: due to excess calories Obesity classification: adult class 1 (BMI 30 - 34.9) Serious obesity comorbidity presence: without serious comorbidity Body mass index: BMI 32.0-32.9 Upper respiratory tract infection, unspecified type J06.9 URI type: unspecified URI Additional Codes IBRAHIMA-7 Assessment Billing - IBRAHIMA-7 Assessment Tool: IBRAHIMA-7 Assessment 16271 ([id number])
== END 2023-11-25 12:12 | disposition home or self-care (01) ==
PROVIDERS: PCP Internal Medicine; Visit Provider Internal Medicine
DX: G47.9 Sleep disorder, unspecified (principal); F41.1 Generalized anxiety disorder; E66.09 Other obesity due to excess calories; Z68.32 Body mass index [BMI] 32.0-32.9, adult; J06.9 Acute upper respiratory infection, unspecified
CPT/HCPCS: 99213

== ENCOUNTER 2024-04-22 14:16 | Outpatient (AMB) | payer OTHER, SELFPAY ==
[2024-04-22 14:20] VITALS: BP 130/80; PULSE 77; O2SAT 97; BMI 31.2
--- NOTE | 2024-04-22 14:20 | A.OFFPC_ITS ---
Vital Signs 04/22/24 14:20 Height 5 ft 7 in Weight 199 lb 6 oz BMI 31.2 BP 130/80 Blood Pressure Location Rt brachial Position Sitting Pulse 77 Pulse Source Pulse Oximeter Pulse Oximetry (%) 97 Oxygen Delivery Method Room Air Intake Visit Reasons: 3 month follow up / anxiety 04/08 Allergies Cats/Dogs Allergy (Unknown, Uncoded 07/17/23 09:49) per allergy testing Environmental Allergy (Unknown, Uncoded 07/17/23 09:49) per allergy testing Medication List - Last Reconciled 04/22/24 by Flo Hernandez MD clonazepam 1 mg PO BID 30 days zolpidem 5 mg PO BEDTIME PRN 30 days Tobacco use date assessed: 04/22/24 Dental Screening Dental Screen Date: 04/22/24 Did you have a dental visit in the last 12 months?: Yes Did you have a dental problem in the last 6 months where you did not have access to dental care?: No Was dental information given to patient?: Patient has dentist HPI 3 month follow up / anxiety 04/08 HPI Details Patient is a 43-year-old female came in today for regular follow-up She is usual state of health came in today to get her medication refilled Patient is on to control medications Patient is taking clonazepam for anxiety and zolpidem to sleep at night Patient is complying with the treatment plan no signs of abuse Still struggling with weight Patient is allergic to cat and she owns a cat Continued to complain of having allergies, patient says that [id number] medication does not work She does not want to get rid of CAD I am sending montelukast with the patient to see if she benefits from it She has appointment for physical exam in June Labs are needed before visit fasting [facility] Medical History Obesity H/O abnormal cervical Papanicolaou smear Difficulty sleeping Anxiety, generalized Family History Father Unknown family medical history Mother Mood disorder Maternal Grandmother Heart disease Diabetes mellitus Maternal Grandfather Heart disease Lung cancer Sister No problems noted. Son No problems noted. Social History Housing: Apartment Alcohol intake: current Alcohol intake frequency: a few times a month Patient Tobacco Use Status: Former Tobacco user e-Cigarette/Vaping Use: Former Use service: No Current occupational status: employed Sexual orientation: Straight/Heterosexual Gender identity: Female Cognitive needs: No Hearing needs: No Vision needs: No Questionnaire PHQ-9 Over the last 2 weeks, how often have you been bothered by any of the following problems? 1. Little interest or pleasure in doing things: several days 2. Feeling down, depressed, or hopeless: several days 3. Trouble falling or staying asleep, or sleeping too much: several days 4. Feeling tired or having little energy: several days 5. Poor appetite or overeating: several days 6. Feeling bad about yourself - or that you are a failure or have let yourself or your family down: several days 7. Trouble concentrating on things, such as reading the newspaper or watching t elevision: several days 8. Moving or speaking so slowly that other people could have noticed. Or the opposite - being so fidgety or restless that you have been moving around a lot more than usual: several days 9. Thoughts that you would be better off or of hurting yourself in some way: not at all Total score: 8 Depression Screening Interpretation: Negative Depression Screening Done: Yes 08890 - PHQ-9 Billing: Yes Source: Developed by Drs. Oswaldo Bal, Cathy Mendez, Emeterio Navarrete and colleagues, with an educational cas from [employer]. Thrive Questionnaire Date Thrive assessed: 04/22/24 I am a: Patient What is your living situation today?: I have a steady place to live Within the past 12 months, did the food you bought not last and you didn't have the money to get more?: Never true Within the past 12 months, did you worry whether your food would run out before you got money to buy more?: Never true Do you have trouble paying for medicines?: No Do you have trouble getting transportation to medical appointments?: No Do you have trouble paying your heating and electricity bill?: No Do you have trouble taking care of your child, family member or friend?: No Do you have trouble with day-to-day activities such as bathing, preparing meals, shopping, managing finances, etc.?: No Are you currently unemployed and looking for a job?: No Are you interested in more education?: No Please select the resources that you would like help with: None Currently or been in a relationship where the following occur: I choose not to answer THRIVE Score: 0 AUDIT C Alcohol Use Questionnaire (AUDIT-C) 1. How often do you have a drink containing alcohol?: Never 3. How often do you have six or more drinks on one occasion?: Never Total Score: 0 Score Reviewed/Action Taken: Yes IBRAHIMA-7 AMB Questionnaire IBRAHIMA-7 Date IBRAHIMA - 7 assessed: 04/22/24 Feeling nervous, anxious, or on edge: 0 = Not at all Not being able to stop or control worryin = Not at all Worrying too much about different things: 0 = Not at all Trouble relaxin = Not at all Being so restless that it is hard to sit still: 0 = Not at all Becoming easily annoyed or irritable: 0 = Not at all Feeling afraid as if something awful might happen: 0 = Not at all Total IBRAHIMA-7 score (0-4 normal; 5-9 mild; 10-14 moderate; 15-21 severe): 0 Source: Developed by Drs. Oswaldo Bal, Cathy Mendez, Emeterio Navarrete and colleagues, with an educational cas from [employer]. IBRAHIMA-7 Assessment Billing IBRAHIMA-7 Assessment Tool: IBRAHIMA-7 Assessment 88138 Review of Systems Const Denies chills and Denies fever(s) ENT Denies epistaxis and Denies nasal discharge Card Denies chest pain Resp Denies chest congestion, Denies cough and Denies hemoptysis GI Denies diarrhea and Denies nausea Skin/Breast Denies rash Neuro Reports no additional complaints Psych Reports no additional complaints Endo Reports no additional complaints Physical exam (Primary Care) Vital Signs: Last Vital Signs Pulse 77 04/22/24 14:20 BP 130/80 04/22/24 14:20 Pulse Ox 97 04/22/24 14:20 Oxygen Delivery Method Room Air 04/22/24 14:20 BMI result Body Mass Index 31.2 Tobacco/Smoking Status: Tobacco use Status Tobacco use date assessed 04/22/24 04/22/24 14:22 Patient Tobacco Use Status Former Tobacco user 04/22/24 14:22 e-Cigarette/Vaping Use Former Use 04/22/24 14:22 PHQ-9: PHQ-9 Score PHQ-9: Total score 8 04/22/24 14:27 Depression Screening Interpretation: Negative Thrive Assessment: Date of Thrive Assessment Date Thrive assessed 04/22/24 04/22/24 14:22 Currently or been in a relationship where the following occur: I choose not to answer Const General: cooperative, comfortable and no acute distress Orientation/consciousness: patient oriented x3 HENMT Head: Yes normocephalic Eyes General: appearance normal, both eyes and all related structures Neck Neck: Yes supple Resp Effort & Inspection: normal respiratory effort, no cough and no stridor Cardio Rhythm: regular rhythm Heart sounds: S1 normal heart sound present and S2 normal heart sound present Skin General skin exam: turgor normal Neuro General: patient oriented x3, tone normal and moves all extremities Extrem Right lower extremity: no edema Left lower extremity: no edema Coding Level of Care Code Est Pt Level 4 (87096) Diagnoses Anxiety, generalized F41.1 Difficulty sleeping G47.9 Environmental allergies Z91.09 Cat allergies J30.81 Menorrhagia with regular cycle N92.0 Menorrhagia type: with regular cycle Uses control Z78.9 Class 1 obesity due to excess calories without serious comorbidity with body mass index (BMI) of 31.0 to 31.9 in adult E66.811; E66.09; Z68.31 Obesity classification: adult class 1 (BMI 30 - 34.9) Serious obesity comorbidity presence: without serious comorbidity Body mass index: BMI 31.0-31.9 Additional Codes IBRAHIMA-7 Assessment Billing - IBRAHIMA-7 Assessment Tool: IBRAHIMA-7 Assessment 99689 ([id number]) Assessment & Plan Assessment & Plan (1) Anxiety, generalized: Code(s): F41.1 - Generalized anxiety disorder Category: Medical (2) Difficulty sleeping: Code(s): G47.9 - Sleep disorder, unspecified Category: Medical (3) Environmental allergies: Code(s): Z91.09 - Other allergy status, other than to drugs and biological substances Category: Medical (4) Cat allergies: Code(s): J30.81 - Allergic rhinitis due to animal (cat) (dog) hair and dander Category: Medical (5) Heavy periods: Code(s): N92.0 - Excessive and frequent menstruation with regular cycle Category: Medical Qualifiers: Menorrhagia type: with regular cycle Qualified Code(s): N92.0 - Excessive and frequent menstruation with regular cycle (6) Uses control: Code(s): Z78.9 - Other specified health status Category: Social Hx (7) Obesity due to excess calories: Code(s): E66.09 - Other obesity due to excess calories Category: Medical Qualifiers: Obesity classification: adult class 1 (BMI 30 - 34.9) Serious obesity comorbidity presence: without serious comorbidity Body mass index: BMI 31.0- 31.9 Qualified Code(s): E66.811 - Obesity, class 1; E66.09 - Other obesity due to excess calories; Z68.31 - Body mass index [BMI] 31.0-31.9, adult Plan Patient is a 43-year-old female came in today for regular follow-up She is usual state of health came in today to get her medication refilled Patient is on to control medications Patient is taking clonazepam for anxiety and zolpidem to sleep at night Patient is complying with the treatment plan no signs of abuse Still struggling with weight Patient is allergic to cat and she owns a cat Continued to complain of having allergies, patient says that [id number] medication does not work She does not want to get rid of CAD I am sending montelukast with the patient to see if she benefits from it Patient also suffers from heavy menstrual period, she says that she has had that all her life She has restarted taking control pill through OBGYN as her mood was very labile She was feeling very armijo and angry irritable She has appointment for physical exam in June Labs are needed before visit fasting Orders: Orders Comprehensive [place]. Panel Fast Today E66.09 - Other obesity due to excess calories, F41.1 - Generalized anxiety disorder, G47.9 - Sleep disorder, unspecified, J30.81 - Allergic rhinitis due to animal (cat) (dog) hair and dander, N92.0 - Excessive and frequent menstruation with regular cycle, Z78.9 - Other specified health status, Z91.09 - Other allergy status, other than to drug s and biological substances Lipid Panel Today E66.09 - Other obesity due to excess calories, F41.1 - Generalized anxiety disorder, G47.9 - Sleep disorder, unspecified, J30.81 - Allergic rhinitis due to animal (cat) (dog) hair and dander, N92.0 - Excessive and frequent menstruation with regular cycle, Z78.9 - Other specified health status, Z91.09 - Other allergy status, other than to drugs and biological substances UA CC w/rflx Micro + Cult Today E66.09 - Other obesity due to excess calories, F41.1 - Generalized anxiety disorder, G47.9 - Sleep disorder, unspecified, J30.81 - Allergic rhinitis due to animal (cat) (dog) hair and dander, N92.0 - Excessive and frequent menstruation with regular cycle, Z78.9 - Other specified health status, Z91.09 - Other allergy status, other than to drugs and biological substances Complete Blood Count Auto Diff Today E66.09 - Other obesity due to excess calories, F41.1 - Generalized anxiety disorder, G47.9 - Sleep disorder, unspecified, J30.81 - Allergic rhinitis due to animal (cat) (dog) hair and dander, N92.0 - Excessive and frequent menstruation with regular cycle, Z78.9 - Other specified health status, Z91.09 - Other allergy status, other than to drugs and biological substances TSH reflex Free T4 Today E66.09 - Other obesity due to excess calories, F41.1 - Generalized anxiety disorder, G47.9 - Sleep disorder, unspecified, J30.81 - Allergic rhinitis due to animal (cat) (dog) hair and dander, N92.0 - Excessive and frequent menstruation with regular cycle, Z78.9 - Other specified health status, Z91.09 - Other allergy status, other than to drugs and biological substances Medications: New montelukast 10 mg PO DAILY 30 tabs 0RF Refilled clonazepam 1 mg PO BID 30 days 45 tabs 2RF F41.1 - Generalized anxiety disorder zolpidem 5 mg PO BEDTIME 30 days PRN 30 tabs 2RF sleep G47.9 - Sleep disorder, unspecified
== END 2024-04-22 14:54 | disposition home or self-care (01) ==
PROVIDERS: PCP Internal Medicine; Visit Provider Internal Medicine
DX: F41.1 Generalized anxiety disorder (principal); G47.9 Sleep disorder, unspecified; Z91.09 Other allergy status, other than to drugs and biological substances; J30.81 Allergic rhinitis due to animal (cat) (dog) hair and dander; N92.0 Excessive and frequent menstruation with regular cycle; Z78.9 Other specified health status; E66.811 Obesity, class 1; E66.09 Other obesity due to excess calories; Z68.31 Body mass index [BMI] 31.0-31.9, adult

== ENCOUNTER → 2024-04-22 14:16 | Outpatient (BNVA) | payer OTHER, SELFPAY | PROVIDERS: PCP Internal Medicine; Visit Provider Internal Medicine | DX: F41.1 Generalized anxiety disorder (principal); G47.9 Sleep disorder, unspecified; J30.81 Allergic rhinitis due to animal (cat) (dog) hair and dander; N92.0 Excessive and frequent menstruation with regular cycle; E66.09 Other obesity due to excess calories; Z68.31 Body mass index [BMI] 31.0-31.9, adult; Z78.9 Other specified health status; Z91.09 Other allergy status, other than to drugs and biological substances | CPT/HCPCS: 96127 ==

== ENCOUNTER 2024-05-20 10:06 | Outpatient (AMB) | payer OTHER, SELFPAY ==
--- NOTE | 2024-05-20 10:08 | MHC.OFFVIS ---
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 Informs me she has her mammogram appointment immediately after this visit and requests me to hurry up. I hate coming to these appointments, and the mammogram and having my blood work . She has concerns for medical expenses and reports she has been trying to pay off her medical bills working 2 jobs. Has concerns: sweats a lot, dryness/itch in the hair region. I'm sweating now . She tries to eat healthy and has been increasing her exercise. Reports menses heavy all my life , has used control intermittently. Endometrial biopsy and cervical polypectomy 06/2023 were benign. She stopped the pills in the past due to mood changes, irritability, anger, and bloating. Recently restarted OCPs due to the heavy bleeding, I was fed up with dealing with it . Had breakthrough bleeding last month with the 1st pack in the 3rd week. She would like to continue pill use due to the benefits of cycle control. She denies any contraindications to control such as: migraines with aura, history of DVT or pulmonary emboli, high blood pressure, liver disease, thrombolic disorders, Lupus, +EMILY, breast cancer, or smoking. She reports she has stopped vaping. Currently is not sexually active. STI screening offered; she declines. Denies family history of breast, ovarian or colon cancer. Last pap smear 2021, negative. Mammogram: 2022. [facility] Medical History Obesity H/O abnormal cervical Papanicolaou smear Difficulty sleeping Anxiety, generalized Family History Father Unknown family medical history Mother Mood disorder Maternal Grandmother Heart disease Diabetes mellitus Maternal Grandfather Heart disease Lung cancer Sister No problems noted. Son No problems noted. Social History Housing: Apartment Alcohol intake: current Alcohol intake frequency: a few times a month Patient Tobacco Use Status: Former Tobacco user e-Cigarette/Vaping Use: Former Use service: No Current occupational status: employed Sexual orientation: Straight/Heterosexual Gender identity: Female Cognitive needs: No Hearing needs: No Vision needs: No Female Reproductive History Menstrual Date of last menstrual period: 04/25/24 Total pregnancies: 2 Full term: 1 Ab induced: 1 Date of last pap smear: 05/06/22 (pap smear and hpv negative ) Date of Mammogram: 12/20/22 (bi-rad 1) Review of Systems Const All systems reviewed & are unremarkable except as noted in HPI and below Physical Exam Vital Signs: Last Vital Signs BP 104/68 05/20/24 10:17 BMI result Body Mass Index 31.0 Const General: cooperative, healthy appearing and no acute distress Orientation/consciousness: patient oriented x3 Chest Other: Declines breast exam. GI Inspection: Yes normal to inspection Palpation (GI): Soft to palpation and Other GI palpation findings present (Nontender) Rectal Exam - Female: visual inspection normal General: Yes bladder normal to palpation External Female Exam: normal appearance of the urethra Speculum Exam - Vagina: normal appearance of the vagina, normal palpation and normal vaginal discharge Speculum Exam - Cervix: normal appearance of the cervix, normal palpation and Cervical mass present (polyp like tissue) Bimanual exam- vagina & uterus: normal bimanual exam, normal palpation, uterine size normal, bladder normal to palpation, normal palpation, uterine shape normal and non-tender Bimanual Exam- Adnexa, other: normal adnexae Neuro General: patient oriented x3 Office Procedures Cervical Polypectomy Details Details: Consent for Cervical Polypectomy procedure: The patient is here today for an Cervical Polypectomy. She was counseled regarding anticipatory guidance for the procedure including the risks for pain, infection, bleeding, perforation, potential injury to the tissues may include the cervix, vagina, uterus, tubes, bladder and bowels. These injuries may include further treatment and evaluation including surgery, blood transfusions, antibiotics, hospitalizations and anesthesia. Permanent injury and scarring can occur. She was consented for the procedure, and the consent forms were signed. She is agreeable to have the procedure today. All questions were answered. Polypectomy Procedure: The patient was placed in the dorsal lithotomy position and a speculum inserted. The polyp was grasped with a Rosiclare and removed with a gentle twisting. The tissue sample was placed in formalin in a patient labeled container by staff assisting and sent to the pathology department for processing and interpretation. Minimal bleeding was observed.The patient tolerate the procedure well and was in good condition when leaving the department. Post Polypectomy Care: There may be some bleeding for several days that is usually light and can turn to a light brown or pink in color. Mild cramping may occur. Nothing in the vagina including: tampons, douching or intimacy for a week. You may take an over the counter mild analgesia like Tylenol or Advil (if no allergies), per the manufacturers recommendations on dosing and frequency. Follow the directions completely. Call the office if any: fever (over 100.4), flu like symptoms, abdominal pain, worsening cramping not resolved with over the counter medications, foul smelling vaginal odor, signs of infected appearing discharge, or heavy bleeding. A follow up for results on the pathology will be made. Please call the office if you have any concerns. This note is constructed using voice recognition software. While every effort has been made to ensure accuracy, telephone operator errors may have been included. CPT: 18378 - Cervical Polypectomy All charges added?: Procedure code (CPT) selection complete Assessment & Plan Assessment & Plan (1) Encounter for annual routine gynecological examination: Code(s): Z01.419 - Encounter for gynecological examination (general) (routine) without abnormal findings Category: Medical (2) Heavy periods: Code(s): N92.0 - Excessive and frequent menstruation with regular cycle Category: Medical Qualifiers: Menorrhagia type: with regular cycle Qualified Code(s): N92.0 - Excessive and frequent menstruation with regular cycle (3) Cervical polyp: Code(s): N84.1 - Polyp of cervix uteri (4) Surveillance for control, oral contraceptives: Code(s): Z30.41 - Encounter for surveillance of contraceptive pills Plan Discussed: Current recommendations for pap smears per ASCCP guidelines. Reviewed prior medical concerns with heavy menstrual bleeding, polypectomy, EMB and MRI findings, history of fibroids. We discussed her concerns about not wanting further medical evaluation/surveillance. I recommended following with a pelvic ultrasound monitoring fibroid size for stability, she is adamant she does not want further testing at this time. I have several 1,000 dollars worth of bills, I want to leave that alone . Advised to reach out to the financial department if she needs help with payment plans and to discussed personally with me any concerns about a bill she gets from our department, and if there is anything that I can do to support her questions and concerns for billing. Breast awareness and periodic breast exams. Mammogram today. Reviewed standard of care for mammography. And concerns for use of control pills with small risk for breast cancer, importance of routine surveillance. Maintain a healthy lifestyle including a well balanced diet and routine exercise. Use condoms for STI and prevention. Mammogram yearly. Advised to report any medical changes or concerns that may affect control use. control hormone use warnings: go to ER if and loss of vision, blindness, severe headache, chest pain or difficulty breathing, severe abdominal pain, or any pain or swelling in an extremity. Rx refill BC sent in. Breakthrough bleeding is common in the 1st several months of the pill packs if the bleeding persists past 3-6 months advised to call the office to follow up in discuss plan of care. Polypectomy completed await pathology results for further plan of care. Patient verbalizes understanding and agrees to the plan of care. She was given opportunity to ask questions and all questions were answered to the best of my ability. 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 This note is constructed using voice recognition software. While every effort has been made to ensure accuracy, telephone operator errors may have been included. Orders: Orders Surgical 05/20/24 N84.1 - Polyp of cervix uteri Coding Level of Care Code Est Pt Prev Care 40-64y(25735) Diagnoses Encounter for annual routine gynecological examination Z01.419 Menorrhagia with regular cycle N92.0 Menorrhagia type: with regular cycle Cervical polyp N84.1 Surveillance for control, oral contraceptives Z30.41 CPT Codes Details - CPT: 76580 - Cervical Polypectomy ([id number]) Comment Add modifier for polypectomy
[2024-05-20 10:17] VITALS: BP 104/68; BMI 31.0
== END 2024-05-20 11:11 | disposition home or self-care (01) ==
LOC: HO.HWS 10:07
PROVIDERS: PCP Internal Medicine; Visit Provider Advanced Practice Midwife
DX: N84.1 Polyp of cervix uteri (principal)
CPT/HCPCS: 57500; 99396

== ENCOUNTER 2024-05-20 11:06 | Outpatient (REF) | payer OTHER, SELFPAY | END 2024-05-20 11:07 | disposition home or self-care (01) | LOC: HO.LNP 11:06 | PROVIDERS: Visit Provider Advanced Practice Midwife | DX: N84.1 Polyp of cervix uteri (principal) | CPT/HCPCS: 88305 ==

== ENCOUNTER 2024-05-20 11:17 | Outpatient (REF) | payer OTHER, SELFPAY ==
--- NOTE | ~2024-05-20 | MM_ITS ---
EXAMINATION: MM SCREENING DIGITAL BREAST TOMOSYNTHESIS, BILATERAL CLINICAL INFORMATION: Screening. Asymptomatic. COMPARISON: Mammography: Comparison is made with available priors TECHNIQUE: Digital breast mammography with tomosynthesis is performed in both the craniocaudal and mediolateral oblique views along with computer-aided detection (CAD). FINDINGS: The breasts are heterogeneously dense, which may obscure small masses (ACR BI-RADS breast composition Category c). There are no significant masses, abnormal calcifications, or other abnormalities. MM/MM tomosynthesis screening BI IMPRESSION: No mammographic evidence of malignancy. ASSESSMENT: BI-RADS BI-RADS 1 - Negative RECOMMENDATION: Routine annual mammography screening. 1 year F/U This examination should not preclude the clinical evaluation of a suspicious palpable abnormality. This patient's information was entered into a reminder system with a target due date for their next mammogram. Electronically signed by: Maame Galvin DO 05/30/2024 07:40 PM ION
[2024-05-20 10:04] LABS: MANUAL DIFF FLAG NO
[2024-05-20 10:56] LABS: Basophils Percent Auto 0.6 % (0-2); Eosinophils Absolute Auto 0.1 X10*3/uL (0.0-0.4); Eosinophils Percent Auto 1.4 % (0-4); Hematocrit 37.8 % (37.0-47.0); Hemoglobin 12.8 g/dl (12.0-16.0); Imm Gran Abs Auto 0.01 X10*3/uL (0.00-0.03); Imm Gran Pct Auto 0.2 % (0.0-0.4); Lymphocytes Absolute Auto 2.1 X10*3/uL (1.2-4.9); Lymphocytes Percent Auto 32.1 % (20-40); Mean Corpuscular HGB Conc 33.9 g/dl (31.0-35.0); Mean Corpuscular Hemoglobin 30.7 pg (27.0-33.0); Mean Corpuscular Volume 90.6 fL (80.0-98.0); Mean Platelet Volume 10.3 fL (9.4-12.3); Monocytes Absolute Auto 0.5 X10*3/uL (0.1-1.2); Monocytes Percent Auto 8.3 % (2-11); Neutrophils Absolute Auto 3.7 x10*3/uL (2.0-8.3); Neutrophils Percent Auto 57.4 % (45-73); Platelet Count 294 X10*3/uL (160-400); Red Blood Count 4.17 X10*6/uL (4.20-5.50); Red Cell Distribution Width 11.7 % (11.0-16.0); White Blood Count 6.4 X10*3/uL (4.8-10.8)
[2024-05-20 11:14] LABS: Appearance Urine Clear; Color Urine Yellow; Glucose Urine UA Negative (Negative); Leukocyte Esterase Urine Negative (Negative); Nitrite Urine Negative (Negative); PH 5.5 (5.0-9.0); Urine Blood Negative (Negative); Urine Ketones Negative (Negative); Urine Protein Negative (Neg-Trace)
[2024-05-20 12:08] LABS: TSH reflex Free T4 2.05 uIU/mL (0.32-4.0)
[2024-05-20 12:13] LABS: Anion Gap 12 (12-20)
[2024-05-20 12:18] LABS: Alanine Aminotransferase 18 U/L (0-31); Albumin Level 4.4 g/dL (3.5-5.0); Alkaline Phosphatase 25 U/L (39-117); Aspartate Amino Transferase 26 U/L (5-31); Bilirubin Total 0.4 mg/dL (0.0-1.0); Blood Urea Nitrogen 11 mg/dL (9-16); Calcium 9.4 mg/dL (8.4-10.2); Carbon Dioxide 23 mmol/L (22-29); Chloride 109 mmol/L (96-108); Cholesterol 178 mg/dL (<200); Estimated Glomerular Filt Rate > 60; Glucose Fasting 94 mg/dL (60-99); HDL Cholesterol 56 mg/dL (>40); LDL Cholesterol Calculated 100 mg/dL (<100); Potassium 3.9 mmol/L (3.3-5.1); Sodium 140 mmol/L (135-145); Total Protein 7.1 g/dL (6.5-8.0); Triglycerides 110 mg/dL (<150)
== END 2024-05-20 11:18 | disposition home or self-care (01) ==
LOC: HO.MAMMO 11:17
PROVIDERS: Absent Provider Internal Medicine; PCP Internal Medicine; Visit Provider Advanced Practice Midwife
DX: Z12.31 Encounter for screening mammogram for malignant neoplasm of breast (principal); E66.09 Other obesity due to excess calories; F41.1 Generalized anxiety disorder; G47.9 Sleep disorder, unspecified; Z91.09 Other allergy status, other than to drugs and biological substances; J30.81 Allergic rhinitis due to animal (cat) (dog) hair and dander; N92.0 Excessive and frequent menstruation with regular cycle; Z78.9 Other specified health status
CPT/HCPCS: 36415; 57500; 77063; 77067; 80053; 80061; 81003; 84443; 85025

== ENCOUNTER → 2024-05-20 11:30 | Outpatient (BNV) | payer OTHER, SELFPAY | PROVIDERS: Absent Provider Internal Medicine; PCP Internal Medicine; Visit Provider Internal Medicine | DX: Z12.31 Encounter for screening mammogram for malignant neoplasm of breast (principal) | CPT/HCPCS: 77063; 77067 ==

== ENCOUNTER 2024-07-01 14:18 | Outpatient (AMB) | payer OTHER, SELFPAY ==
[2024-07-01 14:19] VITALS: BP 114/74; PULSE 91; O2SAT 100; BMI 30.7
--- NOTE | 2024-07-01 14:19 | MHC.PC.OV ---
Vital Signs 07/01/24 14:19 Height 5 ft 7 in Weight 196 lb BMI 30.7 BP 114/74 Blood Pressure Location Rt brachial Position Sitting Pulse 91 Pulse Source Pulse Oximeter Pulse Oximetry (%) 100 Oxygen Delivery Method Room Air Intake Visit Reasons: Annual PE Allergies Cats/Dogs Allergy (Unknown, Uncoded 07/01/24 14:20) per allergy testing Environmental Allergy (Unknown, Uncoded 07/01/24 14:20) per allergy testing Medication List - Last Reconciled 07/01/24 by Flo Hernandez MD clonazepam 1 mg PO BID 30 days norethindrone-e.estradiol-iron 1 mg-20 mcg (21)/75 mg (7) (08/08 (28)) 1 tab PO DAILY zolpidem 5 mg PO BEDTIME PRN 30 days Tobacco use date assessed: 07/01/24 Dental Screening Dental Screen Date: 04/22/24 HPI Annual PE HPI Details Patient is a 39-year-old came today for physical examination medication refill Patient is taking clonazepam for anxiety and zolpidem to sleep at night Still struggling with weight Patient is allergic to cat and she owns a cat Continued to complain of having allergies but does not want to take antihistamines She does not want to get rid of CATs The patient declined to continue with prescribed allergy medications despite experiencing some relief, preferring to avoid daily medications. The option of resuming these medications if symptoms recur was offered. Patient also suffers from heavy menstrual period, she says that she has had that all her life She has restarted taking control pill through OBGYN OBGYN visit was recent The presence of uterine fibroids without current evidence suggesting malignancy was noted. - Patient advised to consider annual influenza vaccination. - Mammogram conducted recently; patient declined additional breast exam as per personal preference. - Reinforcement of routine blood pressure monitoring was recommended. - Encouraged to practice regular physical activity to support overall health and weight management. Social history - The patient noted being inactive due to working from home, impacting her physical activity levels. - Expressed frustration and exhaustion from job-related stress. - Attempted dietary modifications; however, expressed difficulty in maintaining consistent exercise due to routine constraints. Medical problems - Uterine Fibroids - Menorrhagia - Overweight - Anxiety regarding medical procedures - Allergic rhinitis Still struggling with weight Labs reviewed with the patient Patient instructions - Continue control pills as prescribed to manage menstrual symptoms. Through OBGYN - Remain observant for any changes in fibroid symptoms and report significant changes. - Maintain blood pressure checks regularly with the primary care physician. - Engage in regular physical activity when possible to manage weight and improve overall health. - Consider resuming daily allergy medication if symptoms return and become bothersome. - Seek advice if anxiety related to medical concerns interferes significantly with daily activities or sleep. - Schedule flu vaccination as soon as convenient and remain attentive to scheduling the COVID-19 vaccination at a later date. Follow-up 3 months for medication refill, 1 year for physical exam [facility] Medical History Obesity H/O abnormal cervical Papanicolaou smear Difficulty sleeping Anxiety, generalized Surgical History No pertinent past surgical history Family History Father Unknown family medical history Mother Mood disorder Maternal Grandmother Heart disease Diabetes mellitus Maternal Grandfather Heart disease Lung cancer Sister No problems noted. Son No problems noted. Social History Housing: Apartment Alcohol intake: current Alcohol intake frequency: a few times a month Patient Tobacco Use Status: Former Tobacco user e-Cigarette/Vaping Use: Former Use service: No Current occupational status: employed Sexual orientation: Straight/Heterosexual Gender identity: Female Cognitive needs: No Hearing needs: No Vision needs: No Questionnaire Thrive Questionnaire Date Thrive assessed: 04/22/24 I am a: Patient What is your living situation today?: I have a steady place to live Within the past 12 months, did the food you bought not last and you didn't have the money to get more?: Never true Within the past 12 months, did you worry whether your food would run out before you got money to buy more?: Never true Do you have trouble paying for medicines?: No Do you have trouble getting transportation to medical appointments?: No Do you have trouble paying your heating and electricity bill?: No Do you have trouble taking care of your child, family member or friend?: No Do you have trouble with day-to-day activities such as bathing, preparing meals, shopping, managing finances, etc.?: No Are you currently unemployed and looking for a job?: No Are you interested in more education?: No Please select the resources that you would like help with: None Currently or been in a relationship where the following occur: I choose not to answer THRIVE Score: 0 AUDIT C Alcohol Use Questionnaire (AUDIT-C) 1. How often do you have a drink containing alcohol?: Never 3. How often do you have six or more drinks on one occasion?: Never Total Score: 0 IBRAHIMA-7 AMB Questionnaire IBRAHIMA-7 Date IBRAHIMA - 7 assessed: 04/22/24 Source: Developed by Drs. Oswaldo Bal, Cathy Mendez, Emeterio Navarrete and colleagues, with an educational cas from [employer]. Review of Systems Const Denies chills and Denies fever(s) Eyes Denies blurry vision ENT Denies nasal discharge and Denies odynophagia Card Denies chest pain at rest and Denies chest pain with activity Resp Denies cough and Denies hemoptysis GI Denies diarrhea, Denies odynophagia, Denies vomiting and Denies hematemesis Reports as per HPI Musc Denies abnormal gait Skin/Breast Reports as per HPI Neuro Denies Neuro-related abnormal movements, Denies Abnormal speech present, Denies abnormal gait and Denies Sensory deficit (Neuro) Psych Denies paranoia Endo Reports as per HPI Randolph/Lymph Reports as per HPI Aller/Immun Reports as per HPI Physical exam (Primary Care) Vital Signs: Last Vital Signs Pulse 91 07/01/24 14:19 BP 114/74 07/01/24 14:19 Pulse Ox 100 07/01/24 14:19 Oxygen Delivery Method Room Air 07/01/24 14:19 BMI result Body Mass Index 30.7 Tobacco/Smoking Status: Tobacco use Status Tobacco use date assessed 07/01/24 07/01/24 14:23 Patient Tobacco Use Status Former Tobacco user 07/01/24 14:23 e-Cigarette/Vaping Use Former Use 07/01/24 14:23 Thrive Assessment: Date of Thrive Assessment Date Thrive assessed 04/22/24 07/01/24 14:23 Currently or been in a relationship where the following occur: I choose not to answer Const General: cooperative, comfortable and no acute distress Orientation/consciousness: patient oriented x3 HENMT Head: Yes normocephalic and Yes atraumatic Eyes General: appearance normal, both eyes and all related structures Pupils: Equal, round and reactive pupils present EOM: EOMs intact bilaterally Neck Neck: Yes supple and No lymphadenopathy Thyroid: Thyroid normal Lymphatic: no lymphadenopathy noted Resp Effort & Inspection: normal respiratory effort and able to speak in complete sentences Auscultation: clear to auscultation bilaterally Cardio Heart sounds: S1 normal heart sound present and S2 normal heart sound present GI Palpation (GI): Soft to palpation and nontender Auscultation: normal bowel sounds General: Yes no CVA tenderness Back/Spine/Pelvis Back: no CVA tenderness Skin General skin exam: elasticity normal and turgor normal Neuro General: patient oriented x3 and gait normal Cranial nerves: Yes Equal, round and reactive pupils present Speech: No Abnormal speech present Sensory Exam: No Sensory deficit (Neuro) Coordination: tandem gait normal and Romberg test negative Extrem General: Yes normal exam except as noted and No edema Office Procedures Flu Questionnaire Does the patient have a severe egg allergy?: No Does the patient have severe life threatening allergies?: No Does the patient have a fever or illness today?: No Has the patient ever had Guillain-Wy[place] Syndrome?: No Has the patient ever had any past reaction to a flu shot?: No Immunizations Fluarix Triv [id number] (PF) 45 mcg (15 mcg x 3)/0.5 mL IM syringe Performing Provider: Flo Hernandez MD [place] [facility] [place] [facility] Administered by: PHILIPPE Prather on 07/01/24 14:52 Dose Route Admin Location Dispensed Lot Number Expiration Date [facility] Environmental Engineering Technician 0.5 mL IM Right Deltoid 0.5 mL [id number] 01/16/25 [id number] Jodange VIS Given Date VIS Provided VIS Publication Date 07/01/24 Single Vaccine 21 Eligibility Eligibility Date Funding Source Not [facility] Eligible 07/01/24 Private Coding Level of Care Code Est Pt Prev Care 40-64y(00488) Diagnoses Encounter for general adult medical examination without abnormal findings Z00.00 Anxiety, generalized F41.1 Difficulty sleeping G47.9 Environmental allergies Z91.09 Cat allergies J30.81 Uses control Z78.9 Class 1 obesity due to excess calories without serious comorbidity with body mass index (BMI) of 31.0 to 31.9 in adult E66.811; E66.09; Z68.31 Obesity classification: adult class 1 (BMI 30 - 34.9) Serious obesity comorbidity presence: without serious comorbidity Body mass index: BMI 31.0-31.9 Assessment & Plan Assessment & Plan (1) Encounter for general adult medical examination without abnormal findings: Code(s): Z00.00 - Encounter for general adult medical examination without abnormal findings Category: Medical (2) Anxiety, generalized: Code(s): F41.1 - Generalized anxiety disorder Category: Medical (3) Difficulty sleeping: Code(s): G47.9 - Sleep disorder, unspecified Category: Medical (4) Environmental allergies: Code(s): Z91.09 - Other allergy status, other than to drugs and biological substances Category: Medical (5) Cat allergies: Code(s): J30.81 - Allergic rhinitis due to animal (cat) (dog) hair and dander Category: Medical (6) Uses control: Code(s): Z78.9 - Other specified health status Category: Social Hx (7) Obesity due to excess calories: Code(s): E66.09 - Other obesity due to excess calories Category: Medical Qualifiers: Obesity classification: adult class 1 (BMI 30 - 34.9) Serious obesity comorbidity presence: without serious comorbidity Body mass index: BMI 31.0-31.9 Qualified Code(s): E66.811 - Obesity, class 1; E66.09 - Other obesity due to excess calories; Z68.31 - Body mass index [BMI] 31.0-31.9, adult Plan Patient is a 39-year-old came today for physical examination medication refill Patient is taking clonazepam for anxiety and zolpidem to sleep at night Still struggling with weight Patient is allergic to cat and she owns a cat Continued to complain of having allergies but does not want to take antihistamines She does not want to get rid of CATs The patient declined to continue with prescribed allergy medications despite experiencing some relief, preferring to avoid daily medications. The option of resuming these medications if symptoms recur was offered. Patient also suffers from heavy menstrual period, she says that she has had that all her life She has restarted taking control pill through OBGYN OBGYN visit was recent The presence of uterine fibroids without current evidence suggesting malignancy was noted. - Patient advised to consider annual influenza vaccination. - Mammogram conducted recently; patient declined additional breast exam as per personal preference. - Reinforcement of routine blood pressure monitoring was recommended. - Encouraged to practice regular physical activity to support overall health and weight management. Social history - The patient noted being inactive due to working from home, impacting her physical activity levels. - Expressed frustration and exhaustion from job-related stress. - Attempted dietary modifications; however, expressed difficulty in maintaining consistent exercise due to routine constraints. Medical problems - Uterine Fibroids - Menorrhagia - Overweight - Anxiety regarding medical procedures - Allergic rhinitis Still struggling with weight Labs reviewed with the patient Patient instructions - Continue control pills as prescribed to manage menstrual symptoms. Through OBGYN - Remain observant for any changes in fibroid symptoms and report significant changes. - Maintain blood pressure checks regularly with the primary care physician. - Engage in regular physical activity when possible to manage weight and improve overall health. - Consider resuming daily allergy medication if symptoms return and become bothersome. - Seek advice if anxiety related to medical concerns interferes significantly with daily activities or sleep. - Schedule flu vaccination as soon as convenient and remain attentive to scheduling the COVID-19 vaccination at a later date. Follow-up 3 months for medication refill, 1 year for physical exam Orders: Orders Influenza [id number] Immunization Today Z23 - Encounter for immunization Medications: Refilled clonazepam 1 mg PO BID 30 days 45 tabs 2RF F41.1 - Generalized anxiety disorder zolpidem 5 mg PO BEDTIME 30 days PRN 30 tabs 2RF sleep G47.9 - Sleep disorder, unspecified
== END 2024-07-01 14:57 | disposition home or self-care (01) ==
PROVIDERS: PCP Internal Medicine; Visit Provider Internal Medicine
DX: Z00.00 Encounter for general adult medical examination without abnormal findings (principal); F41.1 Generalized anxiety disorder; G47.9 Sleep disorder, unspecified; Z91.09 Other allergy status, other than to drugs and biological substances; J30.81 Allergic rhinitis due to animal (cat) (dog) hair and dander; Z78.9 Other specified health status; E66.811 Obesity, class 1; E66.09 Other obesity due to excess calories; Z68.31 Body mass index [BMI] 31.0-31.9, adult; Z23 Encounter for immunization

== ENCOUNTER → 2024-07-01 14:18 | Outpatient (BNVA) | payer OTHER, SELFPAY | PROVIDERS: PCP Internal Medicine; Visit Provider Internal Medicine | DX: Z00.00 Encounter for general adult medical examination without abnormal findings (principal); Z23 Encounter for immunization; F41.1 Generalized anxiety disorder; G47.9 Sleep disorder, unspecified; J30.81 Allergic rhinitis due to animal (cat) (dog) hair and dander; E66.09 Other obesity due to excess calories; Z68.31 Body mass index [BMI] 31.0-31.9, adult; Z78.9 Other specified health status; Z91.09 Other allergy status, other than to drugs and biological substances | CPT/HCPCS: 90471; 90656 ==

== ENCOUNTER 2024-09-16 14:44 | Outpatient (AMB) | payer OTHER, SELFPAY ==
[2024-09-16 14:51] VITALS: BP 116/78; PULSE 77; RESP 16; TEMP 36.7; O2SAT 97; BMI 31.8
--- NOTE | 2024-09-16 14:51 | MHC.PC.OV ---
Vital Signs 09/16/24 14:51 Height 5 ft 7 in Weight 203 lb 2 oz BMI 31.8 BP 116/78 Blood Pressure Location Rt brachial Position Sitting Respiration 16 Pulse 77 Pulse Source Pulse Oximeter Temp 98.1 F Temp Source Oral Pulse Oximetry (%) 97 Oxygen Delivery Method Room Air Intake Visit Reasons: 11 week follow up Allergies Cats/Dogs Allergy (Unknown, Uncoded 07/01/24 14:20) per allergy testing Environmental Allergy (Unknown, Uncoded 07/01/24 14:20) per allergy testing Medication List - Last Reconciled 09/16/24 by Flo Hernandez MD clonazepam 1 mg PO BID 30 days norethindrone-e.estradiol-iron 1 mg-20 mcg ()/75 mg () (08/08 ()) 1 tab PO DAILY zolpidem 5 mg PO BEDTIME PRN 30 days Tobacco use date assessed: 09/16/24 Dental Screening Dental Screen Date: 09/16/24 Did you have a dental visit in the last 12 months?: Yes Did you have a dental problem in the last 6 months where you did not have access to dental care?: No Was dental information given to patient?: Patient has dentist HPI 11 week follow up HPI Details History - The patient is a 43-year-old female presenting with a request for medication refill. - Job stress and social anxiety persist, contributing to her mental health challenges. - Initiating regular exercise (gym three times weekly) to counteract work-related stress and sedentary habits. - Described recent lifestyle changes resulting in improved mood and fitness despite previous sedentary lifestyle. - Coordination of follow-up appointments to minimize financial burden due to the high deductible in her health insurance plan. - Discusses strategies to manage expenses relating to medical visits, including fewer appointments annually and the use of insurance benefits for gym reimbursement. Problem List - Anxiety due to social situations - Stress related to job - Sedentary lifestyle - difficulty sleeping Patient Instructions - Continue regular exercise routine at the gym three times a week. - Follow up in four months as planned to manage medication refills. Rather than 3 months - Monitor stress levels and seek support if job-related stress and social anxiety escalate. - Ensure to use gym reimbursement benefits available through health insurance. Review of Systems - General: No fever no chills - Neurological: No headaches no dizziness - Ear nose throat: No sore throat no hearing difficulty no ear pain - Cardiovascular: No syncope, no chest pain, no palpitations - Gastrointestinal: No nausea vomiting or diarrhea - Endocrine: No polyuria polydipsia no heat intolerance - Genitourinary: No dysuria , no blood in urine Physical Exam General: No acute distress HEENT: No acute findings Neck: Supple Respiratory system: Lungs and heart is good cardiovascular: S1-S2 regular in rate and rhythm Gastrointestinal: No pain Extremities: No new findings RANGE AID: Alert awake oriented x3 motor sensory intact Skin: Normal turgor [facility] Medical History Obesity H/O abnormal cervical Papanicolaou smear Difficulty sleeping Anxiety, generalized Surgical History No pertinent past surgical history Family History Father Unknown family medical history Mother Mood disorder Maternal Grandmother Heart disease Diabetes mellitus Maternal Grandfather Heart disease Lung cancer Sister No problems noted. Son No problems noted. Social History Housing: Apartment Alcohol intake: current Alcohol intake frequency: a few times a month Patient Tobacco Use Status: Former Tobacco user e-Cigarette/Vaping Use: Former Use service: No Current occupational status: employed Sexual orientation: Straight/Heterosexual Gender identity: Female Cognitive needs: No Hearing needs: No Vision needs: No Questionnaire Thrive Questionnaire Date Thrive assessed: 09/16/24 I am a: Patient What is your living situation today?: I have a steady place to live Within the past 12 months, did the food you bought not last and you didn't have the money to get more?: I choose not to answer this question Within the past 12 months, did you worry whether your food would run out before you got money to buy more?: I choose not to answer this question Do you have trouble paying for medicines?: I choose not to answer this question Do you have trouble getting transportation to medical appointments?: I choose not to answer this question Do you have trouble paying your heating and electricity bill?: I choose not to answer this question Do you have trouble taking care of your child, family member or friend?: I choose not to answer this question Do you have trouble with day-to-day activities such as bathing, preparing meals, shopping, managing finances, etc.?: I choose not to answer this question Are you currently unemployed and looking for a job?: I choose not to answer this question Are you interested in more education?: I choose not to answer this question Please select the resources that you would like help with: None Currently or been in a relationship where the following occur: I choose not to answer THRIVE Score: 0 AUDIT C Alcohol Use Questionnaire (AUDIT-C) 1. How often do you have a drink containing alcohol?: Never 3. How often do you have six or more drinks on one occasion?: Never Total Score: 0 Score Reviewed/Action Taken: Yes IBRAHIMA-7 AMB Questionnaire IBRAHIMA-7 Date IBRAHIMA - 7 assessed: 09/16/24 Feeling nervous, anxious, or on edge: 3 = Nearly every day Not being able to stop or control worryin = Nearly every day Worrying too much about different things: 3 = Nearly every day Trouble relaxin = More than half the days Being so restless that it is hard to sit still: 2 = More than half the days Becoming easily annoyed or irritable: 1 = Several days Feeling afraid as if something awful might happen: 1 = Several days Total IBRAHIMA-7 score (0-4 normal; 5-9 mild; 10-14 moderate; 15-21 severe): 15 Source: Developed by Drs. Oswaldo Bal, Cathy Mendez, Emeterio Navarrete and colleagues, with an educational cas from [employer]. IBRAHIMA-7 Assessment Billing IBRAHIMA-7 Assessment Tool: IBRAHIMA-7 Assessment 99204 Physical exam (Primary Care) Vital Signs: Last Vital Signs Temp 98.1 F 09/16/24 14:51 Pulse 77 09/16/24 14:51 Resp 16 09/16/24 14:51 BP 116/78 09/16/24 14:51 Pulse Ox 97 09/16/24 14:51 Oxygen Delivery Method Room Air 09/16/24 14:51 BMI result Body Mass Index 31.8 Tobacco/Smoking Status: Tobacco use Status Tobacco use date assessed 09/16/24 09/16/24 14:53 Patient Tobacco Use Status Former Tobacco user 09/16/24 14:53 e-Cigarette/Vaping Use Former Use 09/16/24 14:53 Thrive Assessment: Date of Thrive Assessment Date Thrive assessed 09/16/24 09/16/24 14:58 Currently or been in a relationship where the following occur: I choose not to answer Coding Level of Care Code Est Pt Level 3 (38748) Diagnoses Anxiety, generalized F41.1 Difficulty sleeping G47.9 Additional Codes IBRAHIMA-7 Assessment Billing - IBRAHIMA-7 Assessment Tool: IBRAHIMA-7 Assessment 62269 ([id number]) Assessment & Plan Assessment & Plan (1) Anxiety, generalized: Code(s): F41.1 - Generalized anxiety disorder Category: Medical (2) Difficulty sleeping: Code(s): G47.9 - Sleep disorder, unspecified Category: Medical Plan History - The patient is a 43-year-old female presenting with a request for medication refill. - Job stress and social anxiety persist, contributing to her mental health challenges. - Initiating regular exercise (gym three times weekly) to counteract work-related stress and sedentary habits. - Described recent lifestyle changes resulting in improved mood and fitness despite previous sedentary lifestyle. - Coordination of follow-up appointments to minimize financial burden due to the high deductible in her health insurance plan. - Discusses strategies to manage expenses relating to medical visits, including fewer appointments annually and the use of insurance benefits for gym reimbursement. Problem List - Anxiety due to social situations - Stress related to job - Sedentary lifestyle - difficulty sleeping Patient Instructions - Continue regular exercise routine at the gym three times a week. - Follow up in four months as planned to manage medication refills. Rather than 3 months - Monitor stress levels and seek support if job-related stress and social anxiety escalate. - Ensure to use gym reimbursement benefits available through health insurance. Medications: Refilled clonazepam 1 mg PO BID 30 days 45 tabs 3RF F41.1 - Generalized anxiety disorder zolpidem 5 mg PO BEDTIME 30 days PRN 30 tabs 3RF sleep G47.9 - Sleep disorder, unspecified
== END 2024-09-16 15:18 | disposition home or self-care (01) ==
PROVIDERS: PCP Internal Medicine; Visit Provider Internal Medicine
DX: F41.1 Generalized anxiety disorder (principal); G47.9 Sleep disorder, unspecified

== ENCOUNTER → 2024-09-16 14:44 | Outpatient (BNVA) | payer OTHER, SELFPAY | PROVIDERS: PCP Internal Medicine; Visit Provider Internal Medicine | DX: F41.1 Generalized anxiety disorder (principal); G47.9 Sleep disorder, unspecified | CPT/HCPCS: 96127 ==

== ENCOUNTER 2025-01-13 14:56 | Outpatient (AMB) | payer OTHER, SELFPAY ==
--- NOTE | 2025-01-13 14:57 | MHC.PC.OV ---
Vital Signs 01/13/25 14:58 Height 5 ft 7 in Weight 193 lb BMI 30.2 BP 116/82 Blood Pressure Location Rt brachial Position Sitting Pulse 83 Pulse Source Pulse Oximeter Temp 97.4 F Temp Source Temporal Artery Scan Pulse Oximetry (%) 100 Oxygen Delivery Method Room Air Intake Visit Reasons: 4m follow up Allergies Cats/Dogs Allergy (Unknown, Uncoded 01/13/25 15:00) per allergy testing Environmental Allergy (Unknown, Uncoded 01/13/25 15:00) per allergy testing Medication List - Last Reconciled 01/13/25 by Flo Hernandez MD clonazepam 1 mg PO BID 30 days norethindrone-e.estradiol-iron 1 mg-20 mcg ()/75 mg (7) (08/08 ()) 1 tab PO DAILY zolpidem 5 mg PO BEDTIME PRN 30 days Tobacco use date assessed: 01/13/25 Dental Screening Dental Screen Date: 01/13/25 Did you have a dental visit in the last 12 months?: Yes Did you have a dental problem in the last 6 months where you did not have access to dental care?: No Was dental information given to patient?: Patient has dentist HPI 4m follow up HPI Details History - The patient is a 44-year-old female presenting with a regular four-month follow-up. - Weight loss: The patient reports a weight loss of 10 pounds since August, attributed to stress and not eating regularly due to a busy schedule. - Sedentary lifestyle: The patient describes a lack of physical activity, primarily due to working from home and a monotonous routine, leading to muscle loss. - Allergies: The patient reports that her allergies remain unchanged. - patient is on Ambien as a sleep aid And clonazepam b.i.d. for anxiety Problem List - Weight loss - Sedentary lifestyle - Allergies - insomnia - anxiety Patient Instructions: Continue medications as prescribed Try to exercise and eat healthy Follow-up 4 months Review of Systems - General: No fever no chills - Neurological: No headaches no dizziness - Ear nose throat: No sore throat no hearing difficulty no ear pain - Cardiovascular: No syncope, no chest pain, no palpitations - Gastrointestinal: No nausea vomiting or diarrhea - Endocrine: No polyuria polydipsia no heat intolerance - Genitourinary: No dysuria , no blood in urine Physical Exam - General: No acute distress - HEENT: No acute findings - Neck: Supple - Respiratory system: Able to talk in full sentences, no audible wheeze - Cardiovascular: S1-S2 regular in rate and rhythm - Gastrointestinal: No pain - Extremities: No new findings - 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 Son No problems noted. Social History Housing: Apartment Alcohol intake: current Alcohol intake frequency: a few times a month Patient Tobacco Use Status: Former Tobacco user e-Cigarette/Vaping Use: Former Use service: No Current occupational status: employed Sexual orientation: Straight/Heterosexual Gender identity: Female Cognitive needs: No Hearing needs: No Vision needs: No Questionnaire PHQ-9 Over the last 2 weeks, how often have you been bothered by any of the following problems? 1. Little interest or pleasure in doing things: several days 2. Feeling down, depressed, or hopeless: several days 3. Trouble falling or staying asleep, or sleeping too much: several days 4. Feeling tired or having little energy: several days 5. Poor appetite or overeating: several days 6. Feeling bad about yourself - or that you are a failure or have let yourself or your family down: several days 7. Trouble concentrating on things, such as reading the newspaper or watching television: several days 8. Moving or speaking so slowly that other people could have noticed. Or the opposite - being so fidgety or restless that you have been moving around a lot more than usual: several days 9. Thoughts that you would be better off or of hurting yourself in some way: not at all Total score: 8 Source: Developed by Drs. Oswaldo Bal, Cathy Mendez, Emeterio Navarrete and colleagues, with an educational cas from [employer]. Thrive Questionnaire Date Thrive assessed: 09/16/24 I am a: Patient What is your living situation today?: I have a steady place to live Within the past 12 months, did the food you bought not last and you didn't have the money to get more?: I choose not to answer this question Within the past 12 months, did you worry whether your food would run out before you got money to buy more?: I choose not to answer this question Do you have trouble paying for medicines?: I choose not to answer this question Do you have trouble getting transportation to medical appointments?: I choose not to answer this question Do you have trouble paying your heating and electricity bill?: I choose not to answer this question Do you have trouble taking care of your child, family member or friend?: I choose not to answer this question Do you have trouble with day-to-day activities such as bathing, preparing meals, shopping, managing finances, etc.?: I choose not to answer this question Are you currently unemployed and looking for a job?: I choose not to answer this question Are you interested in more education?: I choose not to answer this question Please select the resources that you would like help with: None Currently or been in a relationship where the following occur: I choose not to answer THRIVE Score: 0 AUDIT C Alcohol Use Questionnaire (AUDIT-C) 1. How often do you have a drink containing alcohol?: Never 3. How often do you have six or more drinks on one occasion?: Never Total Score: 0 Score Reviewed/Action Taken: Yes IBRAHIMA-7 AMB Questionnaire IBRAHIMA-7 Date IBRAHIMA - 7 assessed: 09/16/24 Feeling nervous, anxious, or on edge: 3 = Nearly every day Not being able to stop or control worryin = Nearly every day Worrying too much about different things: 3 = Nearly every day Trouble relaxin = More than half the days Being so restless that it is hard to sit still: 2 = More than half the days Becoming easily annoyed or irritable: 1 = Several days Feeling afraid as if something awful might happen: 1 = Several days Total IBRAHIMA-7 score (0-4 normal; 5-9 mild; 10-14 moderate; 15-21 severe): 15 Source: Developed by Drs. Oswaldo Bal, Cathy Mendez, Emeterio Navarrete and colleagues, with an educational cas from [employer]. Physical exam (Primary Care) Vital Signs: Last Vital Signs Temp 97.4 F 01/13/25 14:58 Pulse 83 01/13/25 14:58 BP 116/82 01/13/25 14:58 Pulse Ox 100 01/13/25 14:58 Oxygen Delivery Method Room Air 01/13/25 14:58 BMI result Body Mass Index 30.2 Tobacco/Smoking Status: Tobacco use Status Tobacco use date assessed 01/13/25 01/13/25 15:01 Patient Tobacco Use Status Former Tobacco user 01/13/25 15:01 e-Cigarette/Vaping Use Former Use 01/13/25 15:01 PHQ-9: PHQ-9 Score PHQ-9: Total score 8 01/13/25 15:15 Thrive Assessment: Date of Thrive Assessment Date Thrive assessed 09/16/24 01/13/25 15:01 Currently or been in a relationship where the following occur: I choose not to answer Coding Level of Care Code Est Pt Level 3 (61098) Diagnoses Anxiety, generalized F41.1 Difficulty sleeping G47.9 Assessment & Plan Assessment & Plan (1) Anxiety, generalized: Code(s): F41.1 - Generalized anxiety disorder Category: Medical (2) Difficulty sleeping: Code(s): G47.9 - Sleep disorder, unspecified Category: Medical Plan History - The patient is a 44-year-old female presenting with a regular four-month follow-up. - Weight loss: The patient reports a weight loss of 10 pounds since August, attributed to stress and not eating regularly due to a busy schedule. - Sedentary lifestyle: The patient describes a lack of physical activity, primarily due to working from home and a monotonous routine, leading to muscle loss. - Allergies: The patient reports that her allergies remain unchanged. - patient is on Ambien as a sleep aid And clonazepam b.i.d. for anxiety Problem List - Weight loss - Sedentary lifestyle - Allergies - insomnia - anxiety Patient Instructions: Continue medications as prescribed Try to exercise and eat healthy Follow-up 4 months Medications: Refilled clonazepam 1 mg PO BID 30 days 45 tabs 3RF F41.1 - Generalized anxiety disorder zolpidem 5 mg PO BEDTIME 30 days PRN 30 tabs 3RF sleep G47.9 - Sleep disorder, unspecified zolpidem 5 mg PO BEDTIME PRN 30 tabs 4RF sleep 30 days G47.9 - Sleep disorder, unspecified clonazepam 1 mg PO BID 45 tabs 4RF 30 days F41.1 - Generalized anxiety disorder
[2025-01-13 14:58] VITALS: BP 116/82; PULSE 83; TEMP 36.3; O2SAT 100; BMI 30.2
== END 2025-01-13 15:15 | disposition home or self-care (01) ==
LOC: HO.HMCC 14:57
PROVIDERS: PCP Internal Medicine; Visit Provider Internal Medicine
DX: F41.1 Generalized anxiety disorder (principal); G47.9 Sleep disorder, unspecified

== ENCOUNTER → 2025-01-13 14:56 | Outpatient (BNVA) | payer OTHER, SELFPAY | PROVIDERS: PCP Internal Medicine; Visit Provider Internal Medicine | DX: Z13.89 Encounter for screening for other disorder (principal) ==

== ENCOUNTER 2025-07-07 14:25 | Outpatient (AMB) | payer OTHER, SELFPAY ==
[2025-07-07 14:32] VITALS: BP 120/72; PULSE 82; O2SAT 98; BMI 30.7
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
== END 2025-07-07 15:03 | disposition home or self-care (01) ==
LOC: HO.HMCC 14:26
PROVIDERS: PCP Internal Medicine; Visit Provider Internal Medicine
DX: Z00.00 Encounter for general adult medical examination without abnormal findings (principal); F41.1 Generalized anxiety disorder; G47.9 Sleep disorder, unspecified